=== PATIENT | male | born 1950 | race Caucasian/White ===

== ENCOUNTER 2021-05-28 10:53 | Outpatient (REF) | payer MEDICARE, SELFPAY ==
--- NOTE | ~2021-05-28 | US_ITS ---
EXAMINATION: US RETROPERITONEAL LIMITED (RENAL ONLY) CLINICAL INFORMATION: Malignant neoplasm of unspecified kidney, except renal pelvis. COMPARISON: Renal ultrasound 01/05/2019 and 10/06/2017. CT abdomen and pelvis 10/29/2017. TECHNIQUE: Real-time imaging of the kidneys. FINDINGS: RIGHT KIDNEY: 10.0 x 5.8 x 5.3 cm (SAG x AP x TRV). The kidney is normal in size, contour, and echogenicity. Renal cortical thickness is normal. There is curvilinear increased echogenicity with posterior acoustic shadowing seen in the lower pole of the right kidney at the cryoablation site. This is difficult to evaluate due to acoustic shadowing. Best measurement is 3.1 x 2.9 x 2.9 cm. Further evaluation with CT or MRI should be considered. This does not appear changed from most recent ultrasound January 2019. There are 2 cysts upper pole measuring 1.0 x 1.1 x 0.8 cm in the midpole measuring 5 mm. There is question of an echogenic lesion in the upper pole measuring 1.2 cm versus partial volume averaging with perinephric fat. No renal calculi or hydronephrosis. LEFT KIDNEY: 12.0 x 5.9 x 4.9 cm (SAG x AP x TRV). The kidney is normal in size, contour, and echogenicity. Renal cortical thickness is normal. There is a 2.6 x 1.9 x 1.7 cm minimally complex cyst with single thin septation exophytic to the midpole. There is an 8 mm cyst in the upper pole. No renal calculi or hydronephrosis. US/US renal BI IMPRESSION: Linear echogenicity with posterior acoustic shadowing seen in the area of previous right renal cryoablation. This is similar to most recent ultrasound January 2019. Due to acoustic shadowing from likely calcification the lesion is difficult to characterize and further evaluation with CT or MRI with and without contrast is recommended. Bilateral renal cysts. 1 cm echogenic area in the upper pole of the right kidney questionable for angiomyolipoma versus partial volume averaging with the perinephric fat. This could be further evaluated at the time of CT or MRI.
== END 2021-05-28 10:54 | disposition home or self-care (01) ==
LOC: HO.US 10:53
PROVIDERS: PCP Internal Medicine; Visit Provider Urology
DX: C64.9 Malignant neoplasm of unspecified kidney, except renal pelvis (principal)
CPT/HCPCS: 76775

== ENCOUNTER → 2021-06-15 09:58 | Outpatient (BNVA) | payer MEDICARE, SELFPAY | PROVIDERS: PCP Internal Medicine; Visit Provider Urology | DX: N40.1 Benign prostatic hyperplasia with lower urinary tract symptoms (principal); N13.8 Other obstructive and reflux uropathy; Z85.528 Personal history of other malignant neoplasm of kidney; Z15.09 Genetic susceptibility to other malignant neoplasm | CPT/HCPCS: 99212 ==

== ENCOUNTER 2022-05-29 10:12 | Outpatient (REF) | payer MEDICARE, SELFPAY ==
[2022-05-29 11:48] LABS: Prostate Specific Antigen 3.25 ng/mL (<0.05-4.0)
== END 2022-05-29 10:13 | disposition home or self-care (01) ==
LOC: HO.LAB 10:12
PROVIDERS: PCP Internal Medicine; Visit Provider Urology
DX: Z12.5 Encounter for screening for malignant neoplasm of prostate (principal); N40.1 Benign prostatic hyperplasia with lower urinary tract symptoms; N13.8 Other obstructive and reflux uropathy
CPT/HCPCS: 36415; 84153

== ENCOUNTER 2022-06-03 07:52 | Outpatient (REF) | payer MEDICARE, SELFPAY ==
--- NOTE | ~2022-06-03 | US_ITS ---
EXAMINATION: US RETROPERITONEAL LIMITED (RENAL ONLY) CLINICAL INFORMATION: Calculus of kidney. COMPARISON: Ultrasound retroperitoneal limited (renal only) 05/28/2021 and 01/05/2019. CT abdomen and pelvis without and with contrast 10/29/2017. TECHNIQUE: Real-time imaging of the kidneys. FINDINGS: RIGHT KIDNEY: 10.1 x 5.1 x 5.3 cm (SAG x AP x TRV). The kidney is normal in size, contour, and echogenicity. Renal cortical thickness is normal. There is a curvilinear echogenic focus with posterior acoustic shadowing in the posterior lower pole right kidney. This area measures 3.5 x 3.0 x 2.6 cm in dimension. Appearance is similar to previous ultrasound. Due to acoustic shadowing, this is not well evaluated by ultrasound. There is a 1 cm peripelvic cysts in the upper pole. There is a 1.2 x 1.1 x 1.4 cm hyperechoic area in the upper pole of the right kidney. This is similar to previous exam. No renal calculi or hydronephrosis. LEFT KIDNEY: 12.2 x 5.7 x 5.5 cm (SAG x AP x TRV). The kidney is normal in size, contour, and echogenicity. Renal cortical thickness is normal. There are 3 cysts measuring 1 cm in the upper pole, 2 cm in the midpole and 8 mm in the lower pole. No renal calculi or hydronephrosis. US/US renal BI IMPRESSION: Curvilinear echogenicity with posterior acoustic shadowing in the posterior lower pole right kidney and region of previous cryoablation. This is similar to recent ultrasounds. Due to acoustic shadowing from calcification seen on CT, this area is not well evaluated by ultrasound and again followup imaging with CT or MRI is recommended. 1.2 cm echogenic area in the upper pole of the right kidney similar to previous ultrasound which again could be further evaluated at the time of CT or MRI. Bilateral renal cysts.
== END 2022-06-03 07:53 | disposition home or self-care (01) ==
LOC: HO.US 07:52
PROVIDERS: PCP Internal Medicine; Visit Provider Urology
DX: N20.0 Calculus of kidney (principal); C64.9 Malignant neoplasm of unspecified kidney, except renal pelvis
CPT/HCPCS: 76775

== ENCOUNTER → 2022-06-14 10:45 | Outpatient (BNVA) | payer MEDICARE, SELFPAY | PROVIDERS: PCP Internal Medicine; Visit Provider Urology | DX: C64.9 Malignant neoplasm of unspecified kidney, except renal pelvis (principal); N40.1 Benign prostatic hyperplasia with lower urinary tract symptoms; N13.8 Other obstructive and reflux uropathy | CPT/HCPCS: 99212 ==

== ENCOUNTER → 2022-08-21 13:57 | Outpatient (BNVA) | payer MEDICARE, SELFPAY | PROVIDERS: PCP Internal Medicine; Visit Provider Urology | DX: N40.1 Benign prostatic hyperplasia with lower urinary tract symptoms (principal); N13.8 Other obstructive and reflux uropathy; C64.9 Malignant neoplasm of unspecified kidney, except renal pelvis | CPT/HCPCS: 51798; 99212 ==

== ENCOUNTER 2023-06-11 07:51 | Outpatient (REF) | payer MEDICARE, SELFPAY ==
--- NOTE | ~2023-06-11 | US_ITS ---
EXAMINATION: US RETROPERITONEAL LIMITED (RENAL ONLY) CLINICAL INFORMATION: Malignant neoplasm of unspecified kidney, except renal pelvis. COMPARISON: Renal ultrasound 06/03/2022 and 05/28/2021. CT abdomen and pelvis 10/29/2017. TECHNIQUE: Real-time imaging of the kidneys. FINDINGS: RIGHT KIDNEY: 8.6 x 5.5 x 6.0 cm (SAG x AP x TRV). The kidney is normal in size, contour, and echogenicity. Renal cortical thickness is normal. There is a curvilinear echogenic focus with posterior acoustic shadowing in the posterior lower pole. This measures 3.5 x 3.2 x 2.5 cm and does not appear appreciably changed. Due to acoustic shadowing, this is again not well evaluated by ultrasound. There is a 1.6 x 0.9 x 1.3 cm echogenic lesion in the upper pole questionable for an angiomyolipoma versus partial volume averaging with the perinephric fat. There are small cysts measuring less than 1 cm in the upper and midpole. No renal calculi or hydronephrosis. LEFT KIDNEY: 11.8 x 5.2 x 6.7 cm (SAG x AP x TRV). The kidney is normal in size, contour, and echogenicity. There are 3 cysts largest measuring 2 cm in the midpole. Renal cortical thickness is normal. No renal calculi or hydronephrosis. US/US renal BI IMPRESSION: Curvilinear echogenicity with posterior acoustic shadowing in the posterior lower pole right kidney post cryoablation. This is similar to recent ultrasounds. Due to acoustic shadowing from calcification seen on CT, this area is not well evaluated by ultrasound and again followup imaging with CT or MRI is recommended. 1.2 cm echogenic area in the upper pole of the right kidney questionable for an angiomyolipoma versus partial volume averaging with the perinephric fat similar to previous ultrasound which again could be further evaluated at the time of CT or MRI.
== END 2023-06-11 07:52 | disposition home or self-care (01) ==
LOC: HO.US 07:51
PROVIDERS: PCP Internal Medicine; Visit Provider Urology
DX: C64.9 Malignant neoplasm of unspecified kidney, except renal pelvis (principal)
CPT/HCPCS: 76775

== ENCOUNTER 2023-06-24 11:17 | Outpatient (AMB) | payer MEDICARE, SELFPAY ==
--- NOTE | 2023-06-24 11:24 | MHC.OFFVIS ---
Intake Visit Reasons: 10m/US(set) Intake Note: Patient is Present for Follow Up Urology Medication: Patient is not taking tamsulosin no more Antibiotic Allergies: None Blood Thinners:None Allergies No Known Allergies Allergy (Verified 06/24/23 11:28) HPI Comments Details: Niru is a pleasant male. He is a patient of Dr. Hardy. 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 Soft tissue nodule calcification. No evidence of IV enhancement - 05/22 renal ultrasound right kidney changes stable, small bilateral cysts less than 8 mm - 05/23 renal ultrasound right kidney stable - 05/24 renal ultrasound stable cyst and scarring Lower urinary tract symptoms Longstanding symptoms Current management tamsulosin PSA 2019 1.4, 05/23 3.3 PFSH Medical History Carcinoma of kidney Review of Systems Const Denies chills and Denies fever(s) Card Reports no additional complaints and Denies syncope Resp Denies cough GI Denies abdominal pain and Denies heartburn Reports as per HPI and Denies change in libido Neuro Denies syncope Psych Denies change in libido Endo Denies change in libido Physical Exam Const General: cooperative, healthy appearing, comfortable and no acute distress Orientation/consciousness: patient oriented x3 HEENT Face and sinus: Yes normal facial exam Mouth: moist mucous membranes Neck Neck: Yes normal visual inspection, Yes full ROM and Yes trachea midline Chest Chest palpation & inspection: normal inspection of the chest Resp Effort & Inspection: normal respiratory effort, able to speak in complete sentences and no respiratory distress GI Inspection: Yes normal to inspection Back/Spine/Pelvis Cervical Spine: normal cervical lordosis Thoracic/Lumbar Spine: thoracic and lumbar spine normal to inspection Skin General skin exam: no rashes or lesions noted Neuro General: patient oriented x3, gait normal, tone normal and moves all extremities Extrem General: Yes normal to inspection and Yes capillary refill normal Assessment & Plan Assessment & Plan (1) BPH w urinary obs/LUTS: Code(s): N40.1 - Benign prostatic hyperplasia with lower urinary tract symptoms; N13.8 - Other obstructive and reflux uropathy Category: Medical (2) Carcinoma of kidney: Code(s): C64.9 - Malignant neoplasm of unspecified kidney, except renal pelvis Category: Medical (3) Gonzales syndrome: Code(s): Z15.09 - Genetic susceptibility to other malignant neoplasm Category: Medical Plan Twelve month follow-up PSA and renal Orders: Orders Prostate Specific Antigen 364 Days C64.9 - Malignant neoplasm of unspecified kidney, except renal pelvis US renal BI 12 Months C64.9 - Malignant neoplasm of unspecified kidney, except renal pelvis Patient Instructions: Imaging studies, laboratory and physical exam results were discussed and reviewed in detail. No major barriers to patient understanding were identified. An opportunity to ask questions regarding the treatment plan was provided. All questions were answered. The patient expressed understanding and agreement with the above treatment plan. The patient is aware they should contact our office by phone for worsening of their current condition or the appearance of new urologic symptoms. Compliance is encouraged with any medications and followup testing that is ordered. It is a privilege to participate in the urologic care of your patient. If you have any questions or concerns regarding treatment for the above conditions, or other urologic issues, please do not hesitate to contact me. The office telephone contact is [phone]. This note is constructed using voice recognition software. While every effort has been made to ensure accuracy site medical director errors may have been included. Yours sincerely, Dr Shreyas Avina MD, [facility] - Urology Providers of Expert, Compassionate Care for the Genitourinary System Coding Level of Care Code Est Pt Level 4 (43470) Diagnoses BPH w urinary obs/LUTS N40.1; N13.8 Carcinoma of kidney C64.9 Gonzales syndrome Z15.09
== END 2023-06-24 11:54 | disposition home or self-care (01) ==
PROVIDERS: PCP Internal Medicine; Visit Provider Urology
DX: N40.1 Benign prostatic hyperplasia with lower urinary tract symptoms (principal); N13.8 Other obstructive and reflux uropathy; C64.9 Malignant neoplasm of unspecified kidney, except renal pelvis; Z15.09 Genetic susceptibility to other malignant neoplasm
CPT/HCPCS: 99213

== ENCOUNTER → 2023-06-24 11:17 | Outpatient (BNVA) | payer MEDICARE, SELFPAY | PROVIDERS: PCP Internal Medicine; Visit Provider Urology | DX: N40.1 Benign prostatic hyperplasia with lower urinary tract symptoms (principal); N13.8 Other obstructive and reflux uropathy; C64.1 Malignant neoplasm of right kidney, except renal pelvis; Z15.09 Genetic susceptibility to other malignant neoplasm | CPT/HCPCS: 99212 ==

== ENCOUNTER 2024-06-10 13:18 | Outpatient (REF) | payer MEDICARE, SELFPAY ==
--- NOTE | ~2024-06-10 | US_ITS ---
EXAMINATION: US KIDNEY BILATERAL HISTORY: C64.9 - Malignant neoplasm of unspecified kidney, except renal pelvis TECHNIQUE: Real-time grayscale ultrasound imaging of the kidneys was performed and images were reviewed. COMPARISON: Comparison is made with the prior examination dated 06/11/2023. FINDINGS: Right kidney: The right kidney measures 8.9 x 5.5 x 5.2 cm. Renal parenchymal echotexture and thickness are normal. There is a 1.8 x 1.1 x 1.7 cm echogenic lesion at the upper pole (previously 1.6 x 0.9 x 1.3 cm). Again seen is a curvilinear echogenic focus with acoustic shadowing measuring approximately 3.4 cm in size at the lower pole. There are 2 cysts noted measuring up to 10 mm in size. There is no hydronephrosis or renal calculi. Left Kidney: The left kidney measures 11.7 x 5.6 x 5.3 cm. Renal parenchymal echotexture and thickness are normal. Multiple cysts are noted, the largest of which is in the interpolar region measuring 2.4 x 2.0 x 1.9 cm. There is no hydronephrosis or renal calculi. US/US renal BI IMPRESSION: 1. Stable curvilinear echogenic focus with acoustic shadowing at the lower pole of the right kidney. By report, the patient is status post cryoablation in this region. Evaluation is markedly limited due to shadowing. This could be better evaluated with CT or MRI. 2. Slight interval increase in size of an echogenic lesion at the upper pole measuring 1.8 x 1.1 x 1.7 cm. 3. Bilateral renal cysts as described. Electronically signed by: Andres Dubose MD 06/10/2024 02:58 PM EDT
--- OUTSIDE RECORDS SUMMARY | 2024-06-10 16:03 | XMS_ITS | Data Portability ---
Author Organization [facility] Service Address [address] [place] [address] Assessment Encounter Date Assessment Date Assessment LastModified by Organization Details LastModified Time 07/11/2023 07/11/2023 [id number] [place] [id number] (TAX COLLECTION COORDINATOR) MDM MODERATE MUST MEET 2 OUT OF 3 ELEMENTS: PROBLEMS, DATA OR RISK ELEMENT 1: PROBLEMS ADDRESSED 1 OR MORE CHRONIC ILLNESS WITH EXACERBATION OR 2 OR MORE STABLE CHRONIC ILLNESSES OR 1 UNDIAGNOSED NEW PROBLEM OR 1 ACUTE ILLNESS W/SYMPTOMS OR 1 ACUTE COMPLICATED INJURY ELEMENT 2: DATA MUST MEET 1 OF 3 CATEGORIES CATEGORY 1: REVIEW OF PRIOR EXTERNAL NOTES, REVIEW OF RESULTS, ORDERING OF EACH TEST, ASSESSMENT REQUIRING INDEPENDENT HISTORIAN OR CATEGORY 2: INDEPENDENT INTERPRETATION OF TESTS BY ANOTHER PHYSICIAN OR SPECIALIST OR CATEGORY 3: DISCUSSION OF MGT OR TEST INTERPRETATION W/EXTERNAL PHYSICIAN OR SPECIALIST ELEMENT 3: RISK RISK OF COMPLICATIONS AND/OR MORBIDITY OR MORTALITY OF PATIENT MANAGEMENT PROVIDER MUST THOROUGHLY DOCUMENT EACH ELEMENT THAT IS COVERED Not available 07/11/2023 09:19:42 11/24/2023 11/24/2023 [id number] [place] [id number] (TAX COLLECTION COORDINATOR) MDM HIGH MUST MEET 2 OUT OF 3 ELEMENTS: PROBLEMS, DATA OR RISK ELEMENT 1: PROBLEMS 1 OR MORE CHRONIC ILLNESS W/SEVERE EXACERBATION, PROGRESSION MAY REQUIRE HOSPITAL LEVEL CARE OR 1 ACUTE OR CHRONIC ILLNESS OR INJURY THAT POSES A THREAT TO LIFE OR BODILY FUNCTION ELEMENT 2: DATA: MUST MEET 2 OF 3 CATEGORIES CATEGORY 1 REVIEW OF PRIOR EXTERNAL NOTES REVIEW OF THE RESULTS ORDERING OF EACH TEST ASSESSMENT REQUIRING INDEPENDENT HISTORIAN(S) CATEGORY 2: INDEPENDENT INTERPRETATION OF TESTS BY ANOTHER PROVIDER/SPECIALI ST CATEGORY 3: DISCUSSION OF MGT OR TEST INTERPRETATION W/EXTERNAL PHYSICIAN/SPECIAL IST ELEMENT 3: RISK HIGH RISK OF MORBIDITY FROM ADDITIONAL DIAGNOSTIC TESTING OR TREATMENT PROVIDER MUST THOROUGHLY DOCUMENT EACH ELEMENT THAT IS COVERED Not available 11/24/2023 10:12:08 01/19/2024 01/19/2024 [id number] [place] [id number] (TAX COLLECTION COORDINATOR) MDM MODERATE MUST MEET 2 OUT OF 3 ELEMENTS: PROBLEMS, DATA OR RISK ELEMENT 1: PROBLEMS ADDRESSED 1 OR MORE CHRONIC ILLNESS WITH EXACERBATION OR 2 OR MORE STABLE CHRONIC ILLNESSES OR 1 UNDIAGNOSED NEW PROBLEM OR 1 ACUTE ILLNESS W/SYMPTOMS OR 1 ACUTE COMPLICATED INJURY ELEMENT 2: DATA MUST MEET 1 OF 3 CATEGORIES CATEGORY 1: REVIEW OF PRIOR EXTERNAL NOTES, REVIEW OF RESULTS, ORDERING OF EACH TEST, ASSESSMENT REQUIRING INDEPENDENT HISTORIAN OR CATEGORY 2: INDEPENDENT INTERPRETATION OF TESTS BY ANOTHER PHYSICIAN OR SPECIALIST OR CATEGORY 3: DISCUSSION OF MGT OR TEST INTERPRETATION W/EXTERNAL PHYSICIAN OR SPECIALIST ELEMENT 3: RISK RISK OF COMPLICATIONS AND/OR MORBIDITY OR MORTALITY OF PATIENT MANAGEMENT PROVIDER MUST THOROUGHLY DOCUMENT EACH ELEMENT THAT IS COVERED Not available 01/19/2024 15:51:21 02/17/2024 02/17/2024 [id number] [place] [id number] (TAX COLLECTION COORDINATOR) MDM MODERATE MUST MEET 2 OUT OF 3 ELEMENTS: PROBLEMS, DATA OR RISK ELEMENT 1: PROBLEMS ADDRESSED 1 OR MORE CHRONIC ILLNESS WITH EXACERBATION OR 2 OR MORE STABLE CHRONIC ILLNESSES OR 1 UNDIAGNOSED NEW PROBLEM OR 1 ACUTE ILLNESS W/SYMPTOMS OR 1 ACUTE COMPLICATED INJURY ELEMENT 2: DATA MUST MEET 1 OF 3 CATEGORIES CATEGORY 1: REVIEW OF PRIOR EXTERNAL NOTES, REVIEW OF RESULTS, ORDERING OF EACH TEST, ASSESSMENT REQUIRING INDEPENDENT HISTORIAN OR CATEGORY 2: INDEPENDENT INTERPRETATION OF TESTS BY ANOTHER PHYSICIAN OR SPECIALIST OR CATEGORY 3: DISCUSSION OF MGT OR TEST INTERPRETATION W/EXTERNAL PHYSICIAN OR SPECIALIST ELEMENT 3: RISK RISK OF COMPLICATIONS AND/OR MORBIDITY OR MORTALITY OF PATIENT MANAGEMENT PROVIDER MUST THOROUGHLY DOCUMENT EACH ELEMENT THAT IS COVERED Not available 02/17/2024 16:08:57 04/28/2024 04/28/2024 [id number] [place] [id number] (TAX COLLECTION COORDINATOR) : MDM LOW MUST MEET 2 OF 3 ELEMENTS: PROBLEMS, DATA OR RISK ELEMENT 1: PROBLEMS ADDRESSED (LOW): 2 OR MORE SELF-LIMITED OR MINOR PROBLEMS OR 1 STABLE CHRONIC ILLNESS OR 1 ACUTE UNCOMPLICATED ILLNESS OR INJURY ELEMENT 2: DATA TO BE REVISED AND ANALYZED (LOW) MUST MEET 1 OF 2 CATEGORIES: CATEGORY 1. REVIEW OF PRIOR EXTERNAL NOTES/RESULTS, ORDERING OF TEST(S) CATEGORY 2. ASSESSMENT REQUIRING INDEPENDENT HISTORIAN(S) INCLUDE WHO THE HISTORIAN IS AND RELATION TO PT AND WHY PT IS UNABLE TO GIVE COMPLETE HISTORY ELEMENT 3: RISK (LOW) RISK OF COMPLICATIONS AND/OR MORBIDITY OR MORTALITY OF PATIENT MANAGEMENT PROVIDER MUST THOROUGHLY DOCUMENT ALL OF THE ELEMENTS COVERED Not available 04/28/2024 09:50:56 Plan of Treatment Reminders Order Date Submit Date Provider Last Modified By Organization Details Last Modified Time Details Appointments None recorded. Lab HbA1c (hemoglobin A1c), blood 2023 024 [facility] (Outpatient), [address] [place] [address], [address], 5 14:26:49 HbA1c (hemoglobin A1c), blood 2024 025 [facility] (Outpatient), [address] [place], [address], 5 14:26:49 Referral None recorded. Procedures None recorded. Surgeries None recorded. Imaging None recorded. Medication Orders omeprazole 20 mg capsule,del ayed release 2024 025 [facility] #0447, [address] [place] [address], [address], 5 09:49:45 prednisone 1 mg tablet 2023 024 [facility] #044[facility], [address] [place], [address], 4 16:10:14 prednisone 5 mg tablet 2023 024 [facility], [address] [place] [address], [address], 4 16:10:14 prednisone 5 mg tablet 2023 024 [facility]044[facility], [address] [place], [address], 4 15:51:07 prednisone 1 mg tablet 2023 024 [facility]044[facility], [address] [place] [address], [address], 4 15:51:06 metformin 1,000 mg tablet 2023 024 [facility]044[facility], [address] [place], [address], 4 10:24:22 doxycycline hyclate 100 mg tablet 2023 024 [facility]044[facility], [address] [place], [address], 15:28:50 Silvadene 1 % topical cream 2023 024 [facility]044[facility], [address] [place], [address], 10:24:21 omeprazole 20 mg capsule,del ayed release 2023 024 [facility]044[facility], [address] [place], [address], 09:27:57 Patient TargetsNo targets recorded. Patient Instructions Encounter Date Encounter Id Patient Instructions Last Modified By Organization Details Last Modified Time 07/11/2023 [id number] polymyalgia rheumatica: care instructions Not available 07/11/2023 09:27:55 gastroesophageal reflux disease (GERD): care instructions Not available 07/11/2023 09:27:55 11/24/2023 [id number] pulse oximetry* Not available 11/24/2023 10:24:23 01/19/2024 [id number] polymyalgia rheumatica: care instructions Not available 01/19/2024 15:51:05 02/17/2024 [id number] high blood press ure: care instructions Not available 02/17/2024 16:09:16 learning about h igh blood pressure Not available 02/17/2024 16:09:16 04/28/2024 [id number] polymyalgia rheumatica: care instructions Not available 04/28/2024 09:49:42 learning about t ype 2 diabetes Not available 04/28/2024 09:49:42 type 2 diabetes: care instructions Not available 04/28/2024 09:49:42 gastroesophageal reflux disease (GERD): care instructions Not available 04/28/2024 09:49:42 Reason for Referral None Reported. Results Created Date Observation Date Name Description Value Unit Range Abnormal Flag Note LastModifiedBy Organization Detail LastModifiedTime 11/24/19 24 11/24/2023 pulse oxime try* Result 98% Not Available [facility] [address] [facility] [address], [place], [address], 11/24/2023 08:03:15 04/23/19 25 04/23/2024 HbA1c (hemo globi n A1c), blood A1C 7.5 abnormal Not Available [facility] (Outpatient) [address] [place], [address], 04/23/2024 14:22:48 06/16/19 24 06/11/2023 US, duple x, retro perit oneum , limit ed No observ ation record ed. [email or web address] [facility] (Medical Records) [address] [place], [address], 06/17/2023 09:47:23 06/11/19 25 06/10/2024 imagi ng/di agnos tic resul t No observ ation record ed. [facility] (Medical Records) [address] [place], [address], 06/10/2024 15:01:42 Result Notes None recorded. 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 Alizaradha Gonzales [facility] 4 08:25:57 Cerebral hemorrha ge 668866780 Active 2017 Alizaradha Gonzales [facility] 4 08:26:04 Gastroes ophageal reflux disease 468233011 Active 2017 Aliza Gonzales [facility] 4 08:25:57 Hypercho lesterol emia 03834033 Active 2017 Alizaradha Gonzales [facility] 4 08:25:57 [facility] hyperten enedina 07792348 Active 2017 Alizaradha Gonzales [facility] 4 08:25:57 Osteoart hritis of knee 471193793 Active 2017 Alizaradha Gonzales [facility] 4 08:25:57 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 4 10:11:54 Family history of diabetes mellitus type 2 506233597 Completed 201702/13/2018 Miky Hardy DO [address] [place], [address], [facility] 8 11:20:39 Insomnia 123977709 Active 2017 Alizaradha ahn [facility] 4 08:25:57 Renal cell carcinom a 002282976 Active 2017 R Aliza ahn [facility] 4 08:25:57 Polymyal mulu rheumati ca 22407456 Active 2017 Alizaradha ahn [facility] 4 08:25:57 Type 2 diabetes mellitus 84778760 Completed 201710/29/2019 Removal Reason: now in pre diabetic state Alizaradha ahn [facility] 4 08:25:57 Adult bronchie ctasis 04593061 Active 2023 Alizaradha ahn [facility] 4 08:26:04 Cellulit is of lower leg 578008177 Active 2023 Alizaradha Gonzales jimy [facility] 4 08:26:04 Notes:Some problems listed i n Document: #[id number] could not be added to this patient's chart. Please review this document and add these problems to the patient's chart manually as needed. Problem Notes None recorded. Procedures Surgical History Date Name Laterality Status Provider Name and Address Organization Details Recorded Time 05/07/19 25 Colonoscopy completed Miky Hardy DO [address] [place] [address], [address], [facility] 05/06/2024 18:37:55 09/06/19 20 Colonoscopy completed Miky Hardy DO [address] [place] [address], [address], [facility] 09/10/2019 14:05:05 03/19/19 19 Colonoscopy completed Cony Dockery [facility] 03/20/2018 08:26:29 Imaging Results Imaging Date Name Status LastModified by Organiz ation Details LastModified Time 06/11/2023 US, duplex, retroperiton eum, limited completed [email or web address] [facility] (Medical Records) [address] [place], [address], 06/17/2023 09:47:23 06/10/2024 imaging/diag nostic result active ELICIA [facility] (Medical Records) [address] [place], [address], 06/10/2024 15:01:42 Procedure Notes None recorded. Medical Equipment None Reported. Allergies No known drug allergies Medications Name Sig Start Date Stop Date Status Note LastModified by Organization Details LastModified Time silver sulfadiazin e 1 % topical cream APPLY A 1/16 INCH (1.5 MM) THICK LAYER TO ENTIRE BURN AREA BY TOPICAL ROUTE 2 TIMES PER DAY active Not Available Not Available No t Available metformin 500 mg tablet TAKE 1 TABLET BY MOUTH TWICE A DAY 04/20 completed Not Available Not Available Not Available prednisone 10 mg tablet TAKE 2 TABLETS BY MOUTH EVERY DAY 11/23 completed Not Available Not Available Not Available FreeStyle Lancets 28 gauge USE TO CHECK BLOOD SUGAR LEVEL DAILY. active Not Available Not Available No t Available clonazepam 0.5 mg tablet Take by oral route for 10 days. 09/22 completed Not Available Not Available Not Available prednisone 5 mg tablet TAKE 1 TABLET BY MOUTH EVERY DAY active Not Available Not Available No t Available simvastatin 40 mg tablet 03/11 completed Not Available Not Available Not Available carvedilol 3.125 mg tablet TAKE 1 TABLET TWICE A DAY 07/06 completed Not Available Not Available Not Available lidocaine-p rilocaine 2.5 %-2.5 % topical cream 11/17 completed Not Available Not Available Not Available alprazolam 0.5 mg tablet 11/17 completed Not Available Not Available Not Available tamsulosin 0.4 mg capsule TAKE 1 CAPSULE BY MOUTH AT BEDTIME 07/10 completed Not Available Not Available Not Available prednisone 1 mg tablet TAKE 4 TABLETS EVERY DAY BY ORAL ROUTE FOR 30 DAYS. active Not Available Not Available No t Available prednisone 2.5 mg tablet TAKE 2 TABLETS BY MOUTH EVERY DAY 07/10 completed Not Available Not Available Not Available metformin 1,000 mg tablet TAKE 1 TABLET BY MOUTH TWICE A DAY active Not Available Not Available No t Available diclofenac potassium 50 mg tablet 09/22 completed Not Available Not Available Not Available omeprazole 20 mg capsule,del ayed release TAKE 1 CAPSULE BY MOUTH EVERY DAY active Not Available Not Available No t Available bisacodyl 5 mg tablet,melchor yed release TAKE 4 TABLET BY MOUTH WITH 8 OZ OF WATER ONCE THE DAY BEFORE THE PROCEDURE FOR 1 DAY 11/30 completed Not Available Not Available Not Available lisinopril 5 mg tablet 08/02 completed Not Available Not Available Not Available furosemide 20 mg tablet TAKE 1 TABLET DAILY 11/17 completed Not Available Not Available Not Available metoprolol succinate ER 25 mg tablet,exte nded release 24 hr TAKE 1 TABLET BY MOUTH EVERY DAY active Not Available Not Available No t Available levofloxaci n 500 mg tablet Take 1 tablet every 24 hours by oral route. 01/14 completed Not Available Not Available Not Available doxycycline hyclate 100 mg tablet TAKE 1 TABLET BY MOUTH TWICE A DAY FOR 10 DAYS 02/16 completed Not Available Not Available Not Available rosuvastati n 5 mg tablet TAKE 1 TABLET BY MOUTH EVERY DAY active Not Available Not Available No t Available multivitami n 07/06 completed Not Available Not Available Not Available peg 3350-electr olytes 236 gram-22.74 gram-6.74 gram-5.86 gram solution USE DIRECTED FOR 1 DAY 07/10 completed Not Available Not Available Not Available FreeStyle Lite Strips USE TO TEST BLOOD SUGAR LEVEL DAILY. 2024 active Not Available Not Available Not Avai lable FreeStyle Enid Lite kit USE TO TEST BLOOD SUGAR LEVEL DAILY. active Not Available Not Available No t Available OneTouch Delica Lancets 33 gauge Take 1 each every day by miscell. route for 30 days. 12/31 completed Not Available Not Available Not Available prednisone 2 mg tablet,melchor yed release Take 2 tablets every day by oral route. active Not Available Not Available No t Available Eliquis 5 mg tablet Take 1 tablet twice a day by oral route for 90 days. 07/06 completed Not Available Not Available Not Available Eliquis 2.5 mg tablet Take 1 tablet twice a day by oral route. 07/22 completed Not Available Not Available Not Available Shingrix (PF) 50 mcg/0.5 mL intramuscul ar suspension, kit 05/12 completed Not Available Not Available Not Available OneTouch Ultra Blue Test Strip TEST ONCE A DAY (E11.9) 03/11 completed Not Available Not Available Not Available Fluzone High-Dose 2019- (PF) 180 mcg/0.5 mL intramuscul ar syringe 10/28 completed Not Available Not Available Not Available Fluzone High-Dose Quad 2019- (PF) 240 mcg/0.7 mL IM syringe 05/12 completed Not Available Not Available Not Available Paxlovid 300 mg (150 mg x 2)-100 mg tablets in a dose pack Take 2 tablets twice a day by oral route for 5 days. 05/28 completed Not Available Not Available Not Available Paxlovid 150 mg-100 mg tablets in a dose pack (Renal Dose) TAKE 2 TABLETS TWICE A DAY BY ORAL ROUTE FOR 5 DAYS. 05/28 completed Not Available Not Available Not Available Vitals Date Recorded Body height Body mass index (BMI) Body weight Heart rate Respiratory rate Oxygen saturation Oxygen saturation in Arterial blood by Pulse oximetry Body temperature Systolic blood pressure Diastolic blood pressure Provider Name and Address Organization Details Last Updated DateTime 4 177.8 cm 26.4 kg/m2 39131.9 2 g 66 /min 16 /min 96 % 96 % 98.1 [degF] 144 mm[Hg] 78 mm[Hg] Osbaldo Arrieta MA [facility] 4 09:03:35 Date Recorded Body height Body mass index (BMI) Body weight Heart rate Oxygen saturation Oxygen saturation in Arterial blood by Pulse oximetry Systolic blood pressure Diastolic blood pressure Provider Name and Address Organization Details Last Updated DateTime 4 177.8 cm 26.3 kg/m2 61746.1 2 g 68 /min 98 % 98 % 130 mm[Hg] 80 mm[Hg] Aliza Gonzales [facility] 4 09:59:02 Date Recorded Body height Body mass index (BMI) Body weight Heart rate Oxygen saturation Oxygen saturation in Arterial blood by Pulse oximetry Systolic blood pressure Diastolic blood pressure Provider Name and Address Organization Details Last Updated DateTime 4 177.8 cm 26.3 kg/m2 50366.4 g 67 /min 98 % 98 % 130 mm[Hg] 80 mm[Hg] Batsheva Ferraromond [facility] 4 15:29:32 Date Recorded Body height Body mass index (BMI) Body weight Heart rate Oxygen saturation Oxygen saturation in Arterial blood by Pulse oximetry Systolic blood pressure Diastolic blood pressure Provider Name and Address Organization Details Last Updated DateTime 4 177.8 cm 26.4 kg/m2 17385 g 70 /min 98 % 98 % 130 mm[Hg] 80 mm[Hg] Aliza Gonzales [facility] 4 15:35:24 Social History Question Answer Notes LastModified by Organizat ion Details LastModified Time Tobacco Smoking Status Former Smoker Not Available [facility] 01/04/2020 03:36:24 What Was The Date Of Your Most Recent Tobacco Screening? 02/17/2024 [email or web address] Information not available 02/17/2024 Do You Or Have You Ever Used Any Other Forms Of Tobacco Or Nicotine? No [email or web address] Information not available 03/11/2022 Sex: Unknown Functional Status None recorded. Mental Status None recorded. Family History Nothing Reported. Medical History No medical history recorded. Immunizations Vaccine Type Date Status Note Provider Nam e and Address Organization Details Recorded Time Influenza, split virus, quadrivalent, preservative 8 completed Not Available [facility] 11/29/2020 15:08:23 Tdap 4 completed Miky Hardy DO [address] [place] [address], [address], [facility] 12/07/2023 19:15:54 influenza, unspecified formulation 4 completed Miky Hardy DO [address] [place] [address], [address], [facility] 12/07/2023 19:16:16 Respiratory syncytial virus (RSV) vaccine, unspecified 4 completed Miky Hardy DO [address] [place] [address], [address], [facility] 12/07/2023 19:17:08 Influenza, split virus, quadrivalent, preservative 9 completed Not Available [facility] 11/29/2020 15:08:23 zoster, unspecified formulation 0 completed Not Available [facility] 11/29/2020 15:08:23 Influenza, split virus, quadrivalent, preservative 0 completed Not Available [facility] 11/29/2020 15:08:23 zoster recombinant 1 completed Not Available [facility] 11/29/2020 15:08:23 Past Encounters Encounter ID Performer Location Encounter Start Date Encounter Closed Date Diagnosis/Indication Diagnosis SNOMED-CT Code Diagnosis ICD10 Code Diagnosis Note [id number] Miky Hardy [facility] [address] [facility], [place] [address] 09/22/2017 11:57:01 09/22/2017 13:56:09 Type 2 diabetes mellitus 79066712 E11.9 stable doing opk a1c is sl elevated but still ok Essential hypertension 17770047 I10 stable taking meds with no issues Gastroesop hageal reflux disease 807009597 K21.9 quiet on prilosec 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 9 [id number] Miky Hardy [facility] [address] [facility], [facility] [address] 01/14/2018 11:37:57 01/14/2018 16:34:17 Abdominal aortic aneurysm screening 395488542 Z13.6 Hepatitis C screening 41 0021119 Z11.59 Dai syndrome 111744903 Z15.09 needs referral to gi for setting up a surveillia nce program Type 2 michael betes mellitus 78945611 E11.9 stable doing ok a1c is sl elevated at 6.9 but still ok Atrial fibrillation 4943 6004 I48.91 newly discovered but pt states has had this for years currently is asymptomat ic and in NSR will refer to cardiology and keep him on low dose carvedilol and asa [id number] Miky PriyaShayna Hardy [facility] [address] [facility], [place] [address] 02/13/2018 10:50:45 02/13/2018 11:36:37 Atrial fibrillation 09367482 I48.91 newly discovered but pt states has had this for years currently is asymptomat ic and in NSR keep him on low dose carvedilol and asa will be seeing cardiologi st on the of this month Hepatitis C screening 41 0824010 Z11.59 will order next lab Essential hypertension 47354267 I10 stable taking meds with no issues carvedilol is well tolerated Type 2 michael betes mellitus 41111434 E11.9 stable doing ok a1c is sl elevated at 6.9 but still ok [id number] Miky PowersShayna Hayley [facility] [address] [facility] [place] [address] 04/08/2018 11:55:15 04/08/2018 12:38:54 Atrial fibrillation 83083474 I48.91 newly discovered but pt states has had this for years currently is asymptomat ic and in NSR keep him on low dose carvedilol and asa was seen by cardiologi st on the of this dec but we did not receive any Type 2 michael betes mellitus 07367984 E11.9 a1c is pending but his fbs was 191 Essential hypertension 46351480 I10 stable taking meds with no issues carvedilol is well tolerated Renal diso rder due to type 2 diabetes mellitus 799557209 E11.22 [id number] Miky Hardy [facility] [address] [facility] [place] [address] 07/22/2018 11:40:50 07/22/2018 12:18:10 Atrial fibrillation 96805177 I48.91 newly discovered but pt states has had this for years currently is asymptomat ic and in NSR keep him on low dose carvedilol and asa was seen by cardiologi st on the 31 of this dec but we did not receive any Hypercholesterolemia 136 64855 E78.00 will need to check in the next lab draw Type 2 michael betes mellitus 95078419 E11.9 a1c is 5.5 we will discontinu e the metformin! !!!!! 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 G90.2 dx by optho but i have no info had and MRI but no results on this but pt told was neg dont know of anyu follow up wi just following this Essential hypertension 96168064 I10 stable taking meds with no issues carvedilol is well tolerated Mass of chest wall 23169 4000 R22.2 has large sebaceous cyst on chest wall will need referral [id number] Miky Hardy [facility] [address] [facility],[place] [address] 11/17/2018 15:37:11 11/17/2018 16:04:23 Hypercholesterolemia 93574846 E78.00 will need to check in the next lab draw Atrial fibrillation 4943 6004 I48.91 t pt states has had this for years currently is asymptomat ic and in NSR keep him on low dose carvedilol and asa will see cardiologi st Essential hypertension 78266644 I10 stable taking meds with no issues carvedilol is well tolerated Type 2 michael betes mellitus 96865251 E11.9 a1c is 5.2, was 5.5 with discontinu ed metformin! !!!!! [id number] Miky Hardy [facility] [address] [facility],[place] [address] 03/29/2019 13:19:00 03/29/2019 14:21:03 Type 2 diabetes mellitus 00383106 E11.9 A1C stable at 5.5 with improved diet/exerc ise Dropped 30 lb over last year Essential hypertension 84787601 I10 stable taking meds with no issues carvedilol is well tolerated Atrial fibrillation 4943 6004 I48.91 pt states has had this for years currently is asymptomat ic and in NSR keep him on low dose carvedilol and asa will see cardiologi st Doing very well Hypercholesterolemia 136 39565 E78.00 HDL 44 LDL 132 Doing very well with current med [id number] Miky Hardy [facility] [address],[place] [address] 08/03/2019 13:33:00 08/03/2019 13:56:20 Atrial fibrillation 61648442 I48.91 pt states has had this for years currently is asymptomat ic and in NSR keep him on low dose carvedilol and asa will see cardiologi st Doing very well Essential hypertension 81375150 I10 stable taking meds with no issues carvedilol is well tolerated Type 2 michael betes mellitus 93960016 E11.9 A1C stable at 5.5 with improved diet/exerc ise Dropped 30 lb over last year Gastroesop hageal reflux disease 990914623 K21.9 quiet on prilosec [id number] Miky Hardy [facility] [address] [facility] [address],[place] [address] 10/29/2019 09:03:20 10/29/2019 10:19:43 Atrial fibrillation 50532929 I48.91 pt states has had this for years currently is asymptomat ic and in NSR keep him on low dose carvedilol and asa will see cardiologi st Doing very well Type 2 michael betes mellitus 37601188 E11.9 A1C stable at 5.7 and 5.5 previous with improved diet/exerc ise Dropped 30 lb over last year and continues to drop a bit Essential hypertension 67458006 I10 stable taking meds with no issues carvedilol is well tolerated Hepatitis C screening 41 9998489 Z11.59 will order next lab [id number] MELVIN HIRSCH [facility] [address] [facility] [address],[place] [address] 01/21/2020 15:49:29 01/21/2020 16:23:27 Atrial fibrillation 53040122 I48.91 stable Lipoma of skin 627080840 D17.30 will do US to confirm, as patient has hx of Dai Disease [id number] Miky Haryd [facility] [address],[place] [address] 05/12/2020 09:01:17 05/12/2020 09:39:45 Atrial fibrillation 61724737 I48.91 pt states has had this for years currently is asymptomat ic and in NSR keep him on low dose carvedilol and asa will see cardiologi st Doing very well Impaired f asting glycemia 358158346 R73.01 a1c is 5.5 doing great Essential hypertension 01110271 I10 stable taking meds with no issues carvedilol is well tolerated [id number] Miky Hardy [facility] [address],[place] [address] 10/06/2020 08:49:22 10/06/2020 09:54:34 Atrial fibrillation 19842025 I48.91 pt states has had this for years currently is asymptomat ic and in NSR keep him on low dose carvedilol and asa will see cardiologi st Doing very well Hypercholesterolemia 136 59574 E78.00 HDL 44 LDL 132 Doing very well with current med Essential hypertension 84573153 I10 stable taking meds with no issues carvedilol is well tolerated Type 2 michael betes mellitus 32459914 E11.22 i dont feel that he has active DM anymore and that he is clearly a impaired fasting glucose. a1c is 5.8 A1C stable at 5.7 and 5.5 previous with improved diet/exerc ise Dropped 30 lb over last year and continues to drop a bit Bronchiectasis 06237101 J47.9 quiet and inactive still has occ coughing will have him follow up with dr amador Gastroesop hageal reflux disease 374065679 K21.9 quiet on prilosec Impaired f asting glycemia 192493768 R73.01 a1c is 5.8 doing great [id number] Miky Hardy DO [facility] [address],[place] [address] 04/02/2021 08:15:22 04/02/2021 10:38:39 Atrial fibrillation 69606104 I48.91 pt states has had this for years currently is asymptomat ic and in NSR keep him on low dose carvedilol and we will have him off eliquis and put on asa given he has been stable for over 3 years will see ca rdiologist as necess Doing very well Bronchiectasis 84457835 J47.9 quiet and inactive still has occ coughing will have him follow up with dr amador Type 2 michael betes mellitus 73860619 E11.22 N18.1 i dont feel that he has active DM anymore and that he is clearly a impaired fasting glucose. a1c is 5.8 again and he feels he should be able to do better i told him he should be happy A1C stable at 5.8 and was 5.8 and 5.7 and 5.5 previous with improved diet/exerc ise Dropped 30 lb over last 2 year and continues to drop a bitincreas e his exercise Chronic ki dney disease stage 3A 047145943 N18.[address] pineda says about whether he has improved his numbersand if we can increase [id number] Miky Hardy DO [facility] [address] [facility] [address] [place] [place] [address] 07/06/2021 09:00:17 07/06/2021 09:35:47 Atrial fibrillation 82073463 I48.91 pt states has had this for years currently is asymptomat ic and in NSRwe will change him to metoprolol daily instead of carvedilol and he will take asa instead of eliquiswil l see ca rdiologist as necess Doing very well Hypercholesterolemia 136 07460 E78.00 HDL 44 LDL 132 Doing very well with current med Essential hypertension 43120422 I10 stable taking meds with no issues Chronic ki dney disease stage 3A 216478588 N18.[address] pineda says about whether he has improved his numbershe is done seeing dr pineda due to excellent lab etc [id number] Miky Hardy DO [facility] [address] [facility],[place] [address] 11/30/2021 08:53:13 11/30/2021 09:28:43 Essential hypertension 23772083 I10 stable taking meds with no issues Family his tory of malignant melanoma 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.7 dai syndrome but he does have a lot of sun exposurewi ll refer Atrial fibrillation 4943 6004 I48.91 pt states has had this for years currently is asymptomat ic and in NSRno symptoms at all [id number] Miky Hardy DO [facility] [address] [facility],[place] [address] 03/11/2022 09:50:05 03/11/2022 10:48:46 Atrial fibrillation 51462253 I48.91 pt states has had this for years currently is asymptomat ic and in NSRno symptoms at all Essential hypertension 26684644 I10 stable taking meds with no issues Hypercholesterolemia 136 13443 E78.00 expresses interest in taking a statin again we will order rosuvastat in Impaired f asting glycemia 620451200 R73.01 a1c is 5.7 and was 5.8 doing great Bronchiectasis 70966698 J47.9 quiet and inactive still has occ coughing will have him follow up with dr amador Chronic ki dney disease stage 3A 081519947 N18.[address] pineda says about whether he has improved his numbershe is done seeing dr pineda due to excellent lab etc Type 2 michael betes mellitus 35436979 E11.22 N18.31 i dont feel that he has active DM anymore and that he is clearly a impaired fasting glucose. a1c is 5.8 again and he feels he should be able to do better i told him he should be happy A1C stable at 5.7 was 5.8 and was 5.8 and 5.7 and 5.5 previous with improved diet/exerc isehjodee kept his wgt off for the past 4 years Active or passive immunization 137424605 Z23 utd [id number] Miky Hardy [facility] [address] [facility],[place] [address] 05/28/2022 13:49:36 05/28/2022 15:31:48 Active or passive immunization 536514459 Z23 utd Adult heal th examination 068858429 Z00.01 stop fasting stop eating once a day take the pred 40mg for 2 weeks then if ok go down to 30 and will follow up Atrial fibrillation 4943 6004 I48.91 pt states has had this for years currently is asymptomat ic and in NSRno symptoms at all Polymyalgi a rheumatica 72089365 M35.3 will start prednisone 40mg for 2 weeks and then decrease to 30 depending on how he is doing Type 2 michael betes mellitus 74021670 E11.22 N18.31 sugars went up to 300 since took some pred for the pmr so while on the prednisone we will start him on some metformin [id number] Miky Hardy, [facility] [address] [facility], [employer] [place] [address] 06/26/2022 08:14:49 06/26/2022 16:31:27 Polymyalgia rheumatica 24884109 M35.3 is now starting on 20mg he will be going for 2 weeks thwn decrease to 15 for 2 weeks then 10 but will call before going lower Type 2 michael betes mellitus 25900581 E11.22 N18.31 glucose is up and he is taking metformin twice [id number] Miky Hardy, [facility] [address] [facility], [facility] [address] 09/09/2022 09:55:34 09/09/2022 10:46:03 Type 2 diabetes mellitus 80028441 E11.22 N18.31 glucose is up and he is taking metformin twice Essential hypertension 18360169 I10 stable taking meds with no issues Polymyalgi a rheumatica 09038823 M35.3 so he is back to 15 mg and will try 12.5 mg and he will tell me in a few weeks whether its time to go down more Atrial fibrillation 4943 6004 I48.91 pt states has had this for years currently is asymptomat ic and in NSRno symptoms at all Advance care planning 71 8516569 Z71.89 utd [id number] Miky Hardy, [facility] [address] [facility],[place] [facility] [address] 12/31/2022 16:05:16 12/31/2022 16:49:15 Atrial fibrillation 03143513 I48.91 pt states has had this for years currently is asymptomat ic and in NSRno symptoms at all Hypercholesterolemia 136 77488 E78.00 expresses interest in taking a statin again we will order rosuvastat in Type 2 michael betes mellitus 72692198 E11.22 N18.31 glucose is up and he is taking metformin ohlrhn4u 6.5 Polymyalgi a rheumatica 00582236 M35.3 had a big flare so he is back to 17.5 mg and will try 15 mg and he will tell me in a few weeks whether its time to go down more [id number] Miky Hardy, [facility] [address] [facility],[place] [address] 03/07/2023 08:40:59 03/07/2023 11:17:57 Essential hypertension 10503569 I10 stable taking meds with no issues Hypercholesterolemia 136 51355 E78.00 expresses interest in taking a statin again we will order rosuvastat in Type 2 michael betes mellitus 10191719 E11.22 N18.31 glucose is up and he is taking metformin [id number] is at 7.1 was 6.5 Chronic ki dney disease stage 3A 231323222 N18.31 he is done with dr pineda kidney function is stable 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 a surveillia nce program Atrial fibrillation 4943 6004 I48.91 pt states has had this for years currently is asymptomat ic and in NSRno symptoms at all Polymyalgi a rheumatica 43193952 M35.3 had a big flare so he is back to 17.5 mg and will try 15 mg and he will tell me in a few weeks whether its time to go down more Adult bronchiectasis 510 86963 J47.9 quiet and no issues Renal cell carcinoma 702 430153 C64.[address] Avina in a couple months for surveillan ce [id number] Miky Hardy, [facility] [address] [facility] [address],[place] [address] 07/11/2023 08:59:28 07/11/2023 10:11:29 Type 2 diabetes mellitus 72601026 E11.22 N18.31 glucose is up and he is taking metformin [id number] is at 7.4 Essential hypertension 83913043 I10 stable taking meds with no issues Depression screening 171 827954 Z13.31 Negative Screening Positive s creening for depression on PHQ-9 (Patient Health Questionnaire 9) 1359787752 09093 Z13.31 Polymyalgi a rheumatica 28200306 M35.3 here and is bad again Gastroesop hageal reflux disease 021669231 K21.9 quiet on prilosec [id number] Miky Hardy [facility] [address] [facility],[place] [address] 11/24/2023 09:48:08 11/24/2023 11:16:33 Atrial fibrillation 45066221 I48.91 pt states has had this for years currently is asymptomat ic and in NSRno symptoms at all Essential hypertension 66392886 I10 stable taking meds with no issues Type 2 michael betes mellitus 46439211 E11.22 N18.31 glucose is up now to 9.3 due to diet and less so prednisone at 5mg and he is taking metformin twicewe will increase the metformin to 1 gm bida1c was at 7.4 Cellulitis of lower leg 880154576 L03.119 [id number] Miky Hardy [facility] [address] [facility] [address] [address] 01/19/2024 15:10:52 01/19/2024 16:42:09 Essential hypertension 49596765 I10 stable taking meds with no issues Hypercholesterolemia 136 60249 E78.00 expresses interest in taking a statin again we will order rosuvastat in Type 2 michael betes mellitus 43706216 E11.22 N18.31 glucose is up now to 9.3 due to diet and less so prednisone at 10mg and he is taking metformin twicewe will increase the metformin to 1 gm bida1c was at 7.4 Polymyalgi a rheumatica 48399431 M35.3 here and is bad again has tried to go below the 10mg but he exacerbate s ]states has been trying to get lower but dropping too quickly [id number] Miky Hardy [facility] [address],[place] [address] 02/17/2024 15:15:05 02/17/2024 16:17:45 Polymyalgia rheumatica 26480546 M35.3 here and is bad again has tried to go below the 10mg but he exacerbate s ]states has been trying to get lower but dropping too quickly continue the slow taper Type 2 michael betes mellitus 51034158 E11.22 N18.31 glucose was up now to 9.3 due to diet and less so prednisone at 10mg and he is taking metformin twicewe will increase the metformin to 1 gm bida1c was at 7.4 Essential hypertension 07071906 I10 stable taking meds with no issues [id number] DO [facility] [address],[place] [address] 04/28/2024 08:08:27 04/28/2024 09:55:54 Type 2 diabetes mellitus 88122207 E11.22 N18.31 a1c is down to 7.5 was up to to 9.3 due to diet and less so prednisone at 10mg and he is taking metformin twicewe will increase the metformin to 1 gm bida1c was at 7.4 Polymyalgi a rheumatica 61774702 M35.3 here and is bad again has tried to go below the 10mg but he exacerbate s ]states has been trying to get lower but dropping too quickly continue the slow taper Gastroesop hageal reflux disease 429790676 K21.9 quiet on prilosec Health Concerns Section Related Observation LastModified by Organization Detai ls LastModified Time None Recorded Concern Status LastModified by Organization Details LastModified Time None Recorded Advance Directives Directive None Recorded Payers Encounter Date Sequence Insurance Name Policy Number Policy Wu Covered Member ID Wu Member ID Guarantor Name 07/11/2023 1 [facility]: MEDICARE PPO BLUE (MEDICARE REPLACEMENT PPO) [id number] Vincetn Blancaka [id number] Vincent Kevin 11/24/2023 1 [facility]: MEDICARE PPO BLUE (MEDICARE REPLACEMENT PPO) [id number] Vincent Reyentka [id number] Vincent A Mientka 01/19/2024 1 [facility]: MEDICARE PPO BLUE (MEDICARE REPLACEMENT PPO) [id number] Vincent A Mientka [id number] Vincent A Mientka 02/17/2024 1 [facility]: MEDICARE PPO BLUE (MEDICARE REPLACEMENT PPO) [id number] Vincent A Mientka [id number] Vincent Reyentka 04/28/2024 1 [facility]: MEDICARE PPO BLUE (MEDICARE REPLACEMENT PPO) [id number] Vincent Reyentka [id number] Vincent Kevin Notes Date Note Type Note Provider Name and Address Organization Details Recorded Time 4 text/html relates that he feels he is having the same symptoms of arthralgia and myalgia as when he had the PMR flarerelates that he has been down to 7.5mg and is struggling today finally relentedand is taking 20mg a1c is7.4 esr up to 27 Miky Hardy DO [address] [place], [address], [facility] 07/11/2023 09:28:00 4 text/html here finally for a rechk but has not checked his lab for over a yearpoor diet he admitsstill on 5mg pred for PMRa1c is 9.3 was 7.2 a year agodoesnt chk his daily sugarsstates not watching diet and is cheating all the timeno cp no sob Miky Hardy DO [address] [place], [address], [facility] 11/24/2023 10:25:22 5 text/html MEDS- complaint, no ADRsDIET- non compliantcomplaint with low sugar, lean proteins, lots of veggies, low refined CHO, limits ETOH, doesn't use tobacco productsEXERCISE- does not exercise, recognizes the importance, struggles with motivationexercises regularly- typically:LIPIDS- at goalCMP- within normal limitsAIC- at goalMICROALBUMIN- within normal limitsEYE EXAM- last done:next due:FOOT EXAM- last done:next due: is still on pred but taking 7mg and is tolerating and he is slowoly hppnpkoyp3h is 7.5 and is stillocc sore at times but overall is tolerable Miky Hardy DO [address] [place], [address], [facility] 04/28/2024 09:52:35
--- OUTSIDE RECORDS SUMMARY | 2024-06-10 16:03 | XMS_ITS | Clinical Summary ---
Author Organization [facility], Address [address] [facility] [address] [place], [place] Phone Care Team Providers Care Control Equipment Electrician Name Role Phone Miky Hardy DO Primary Care Provider [phone] Allergies No known active allergies Medications Multiple Vitamins-Minera ls (MULTIVITAMIN ADULT PO) multivitamin Active Active Problems Problem Noted Date Diagnosed Date Essential hypertension 07/03/2020 Stage 3a chronic kidney disease 07/03/2020 Chronic kidney disease due to hypertension 06/14 Proteinuria 06/15/2019 Diabetes mellitus 05/28/2017 Overview (06/28/2020): Last Assessment & Plan: his weight mainly with diet and exercise. Basically with diet and exercise no longer diabetic Renal cell carcinoma 05/28/2017 Hyperlipidemia 02/07/2017 Overview (06/28/2020): Last Assessment & Plan: As mentioned we are going to repeat the lipids in 5 months. LDL goal should be less than 100 ideally Last Assessment & Plan: Also given his risk well-controlled to the guidelines Resolved Problems Problem Noted Date Diagnosed Date Resolved Date Hypertension 05/28/2017 07/03/2020 Overview (06/28/2020): Last Assessment & Plan: Well-controlled at this time Last Assessment & Plan: Well-controlled to the guidelines Immunizations Immunization Administration Dates Next Due Influenza Split High Dose Preservative Free IM 11/24/2018,11/11/2017,02/20/2017,2015 Influenza, Quadrivalent, Wit h Preservative 12/31/2019,11/24/2018,11/11/2017 Shingrix 05/04/2020 Zoster 05/04/2020,12/31/2019 Family History Medical History Relation Comments Cancer Brother Stomach cancer Father Lung cancer Mother Cancer Sister x2 Relation Status Comments Brother Father Mother Alive Sister Social History Tobacco Use Types Packs/Day Years Used Date Smoking Tobacco: Former Cigarettes Q uit: 04/24/2011 Alcohol Use Standard Drinks/Week Comments No 0 (1 standard drink = 0.6 oz pur e alcohol) Sex and Gender Information Value Date Recorded Sex Assigned at Not on file Legal Sex Male 4:32 PM EST Gender Identity Not on file Sexual Orientation Not on file Last Filed Vital Signs Vital Sign Reading Time Taken Comments Blood Pressure 122/70 07/02/2021 8:44 AM EDT Pulse 68 07/02/2021 8:44 AM EDT Temperature 35.8 ??C (96.5 ??F) 07/03/2020 1:28 PM ED T Respiratory Rate 14 07/02/2021 8:44 AM EDT Oxygen Saturation - - Inhaled Oxygen Concentration - - Weight 83.9 kg (185 lb) 07/02/2021 8:44 AM EDT Height 177.8 cm (5' 10 ) 07/02/2021 8:44 AM EDT Body Mass Index 26.54 07/02/2021 8:44 AM EDT Plan of Treatment Health Maintenance Due Date Last Done Comments Pneumococcal Vaccine: 50+ Years (1 of 2 - PCV) 1956 Colorectal Cancer Screening: Annual FOBT 1998 Colorectal Cancer Screening: Colonoscopy 1998 Colorectal Cancer Screening: Sigmoidoscopy 1998 Diabetes: Hemoglobin A1C 05/24/2019 Diabetes: Ophthalmology Exam 05/24/2019 Diabetes: Pedal Pulse Checked 05/24/2019 Diabetes: Sensory Foot Exam 05/24/2019 Diabetes: Visual Foot Exam 05/24/2019 Influenza Vaccine (Season Ended) 2024 12/31/2019, 11/24/2018, 11/24/2018, Additional history exists Hepatitis B Vaccine Aged Out No longe r eligible based on patient's age to complete this topic Insurance [facility] Care Teams Control Equipment Electrician Relationship Specialty Start Date End Date Miky Hardy DO [address] [place] [phone] PCP - General 01/05/19
--- OUTSIDE RECORDS SUMMARY | 2024-06-10 16:03 | XMS_ITS | Encounter Summary ---
Author Organization [facility], Address [address] [place] [address] Phone Care Team Providers Care Barrel Leveler Name Role Phone Miky Hardy DO Primary Care Provider [phone] Encounter Details Date Type Department Care Team (Late st Contact Info) Description 06/28/2022 Documentation Only [facility], - [address] [facility] [address] [place] [phone] Irasema Fagan MD Social History Tobacco Use Types Packs/Day Years Used Date Smoking Tobacco: Former Cigarettes Q uit: 04/24/2011 Alcohol Use Standard Drinks/Week Comments No 0 (1 standard drink = 0.6 oz pur e alcohol) Sex and Gender Information Value Date Recorded Sex Assigned at Not on file Legal Sex Male 4:32 PM EST Gender Identity Not on file Sexual Orientation Not on file documented as of this encounter Plan of Treatment Not on file documented as of this encounter Visit Diagnoses Not on filedocumented in this encounter Care Teams Barrel Leveler Relationship Specialty Start Date End Date Miky Hardy DO [address] [facility] [place] [phone] PCP - General 01/05/19 documented as of this encounter
--- OUTSIDE RECORDS SUMMARY | 2024-06-10 16:03 | XMS_ITS | Encounter Summary ---
Author Organization [facility], Address [address] [place] [address] Phone Care Team Providers Care Appraisal Analyst Name Role Phone Hayley Miky MARRERO Primary Care Provider Encounter Details Date Type Department Care Team ([facility] st Contact Info) Description 12/31/2019 Orders Only [facility] - [facility] [address] [facility] [address] [place] [phone] Irasema Fagan MD Chronic kidney disease, stage 3 (moderate) Social History Tobacco Use Types Packs/Day Years [...] documented as of this encounter Visit Diagnoses Diagnosis Chronic kidney disease, stage 3 (moderate) documented in this encounter Care Teams Appraisal Analyst Relationship Specialty Start Date End Date Miky Hardy DO [address] [facility] [phone] PCP - General 01/05/19 documented as of this encounter
--- OUTSIDE RECORDS SUMMARY | 2024-06-10 16:03 | XMS_ITS | Encounter Summary ---
Author Organization [facility], Address [address] [place] [address] Phone Care Team Providers Care Fox Raiser Name Role Phone Miky Hardy DO Primary Care Provider [phone] Encounter Details Date Type Department Care Team (Late st Contact Info) Description 06/28/2022 Documentation Only [facility], - [address] [facility] [address] [place] [phone] Irasema Fagan MD Social History Tobacco Use [...] on filedocumented in this encounter Care Teams Fox Raiser Relationship Specialty Start Date End Date Miky Hardy DO 6 [facility] [place] [phone] PCP - General 01/05/19 documented as of this encounter
--- OUTSIDE RECORDS SUMMARY | 2024-06-10 16:03 | XMS_ITS | Encounter Summary ---
Author Organization [facility] [place], Address [address] [place] [address] Phone Care Team Providers Care Bakery Chef Name Role Phone Hayley Miky MARRERO Primary Care Provider [phone] Encounter Details Date Type Department Care Team ([facility] st Contact Info) Description 06/30/2020 Orders Only [facility] [place] - [address] [facility] [address] [place] [phone] Irasema Fagan MD Chronic kidney disease, stage [...] (moderate) documented in this encounter Care Teams Bakery Chef Relationship Specialty Start Date End Date Miky Hardy DO 6 [facility] [place] [phone] PCP - General 01/05/19 documented as of this encounter
--- OUTSIDE RECORDS SUMMARY | 2024-06-10 16:03 | XMS_ITS | Encounter Summary ---
Author Organization [facility] [place], Address [address] [place] [address] Phone Care Team Providers Care Foxpro Developer Name Role Phone Miky Hardy DO Primary Care Provider [phone] Reason for Visit * Reason Comments Med Refill Encounter Details Date Type Department Care Team (Late st Contact Info) Description 08/02/2020 Refill [facility] - [facility] [address] [place] [phone] Irasema Fagan MD Social History Tobacco Use [...] on filedocumented in this encounter Care Teams Foxpro Developer Relationship Specialty Start Date End Date Miky Hardy DO 6 [facility] [phone] PCP - General 01/05/19 documented as of this encounter
== END 2024-06-10 13:19 | disposition home or self-care (01) ==
LOC: HO.US 13:18
PROVIDERS: PCP Internal Medicine; Visit Provider Urology
DX: C64.9 Malignant neoplasm of unspecified kidney, except renal pelvis (principal)
CPT/HCPCS: 76775

== ENCOUNTER → 2024-06-10 13:20 | Outpatient (BNV) | payer MEDICARE, SELFPAY | PROVIDERS: PCP Internal Medicine; Visit Provider Radiology Diagnostic Radiology | DX: N28.1 Cyst of kidney, acquired (principal) | CPT/HCPCS: 76775 ==

== ENCOUNTER 2024-06-22 07:49 | Outpatient (REF) | payer MEDICARE, SELFPAY ==
--- OUTSIDE RECORDS SUMMARY | 2024-06-22 07:52 | XMS_ITS | Clinical Summary ---
Author Organization [facility], Address [address] [facility] 3 [place], [place] Phone Care Team Providers Care Assistant Warehouse Manager Name Role Phone Miky Hardy DO Primary Care Provider [phone] Allergies No known active allergies Medications Multiple [...] 50+ Years (1 of 2 - PCV) 1969 Colorectal Cancer Screening: Annual FOBT 1998 Colorectal [...] patient's age to complete this topic Insurance [facility] [employer] Care Teams Assistant Warehouse Manager Relationship Specialty Start Date End Date Miky Hardy DO [address] [place] [phone] PCP - General 01/05/19
--- OUTSIDE RECORDS SUMMARY | 2024-06-22 07:52 | XMS_ITS | Encounter Summary ---
Author Organization [facility] [place], Address [address] [place] [address] Phone Care Team Providers Care Wireworker Supervisor Name Role Phone Miky Hardy DO Primary Care Provider [phone] Encounter Details Date Type Department Care Team (Late st Contact Info) Description 06/28/2022 Documentation Only [facility] [place], - [address] Dr Violet [address] [facility] [address] [place] [phone] Irasema Fagan MD Social History Tobacco Use [...] on filedocumented in this encounter Care Teams Wireworker Supervisor Relationship Specialty Start Date End Date Miky Hardy DO 6 [facility] [place] [phone] PCP - General 01/05/19 documented as of this encounter
--- OUTSIDE RECORDS SUMMARY | 2024-06-22 07:53 | XMS_ITS | Encounter Summary ---
Author Organization [facility] [place], Address [address] [place] [address] Phone Care Team Providers Care Rural Health Consultant Name Role Phone Hayley Miky MARRERO Primary Care Provider [phone] Encounter Details Date Type Department Care Team ([facility] st Contact Info) Description 06/30/2020 Orders Only [facility] [place] - [address] [facility] 3 [place] [phone] Irasema Fagan MD Chronic kidney disease, stage [...] (moderate) documented in this encounter Care Teams Rural Health Consultant Relationship Specialty Start Date End Date Miky Hardy DO 6 [facility] [place] [place] [phone] PCP - General 01/05/19 documented as of this encounter
--- OUTSIDE RECORDS SUMMARY | 2024-06-22 07:53 | XMS_ITS | Encounter Summary ---
Author Organization [facility] [place], Address [address] [place] [address] Phone Care Team Providers Care Product Steward Name Role Phone Hayley Miky MARRERO Primary Care Provider [phone] Encounter Details Date Type Department Care Team ([facility] st Contact Info) Description 12/31/2019 Orders Only [facility] [place] - [facility] 51 [facility] 3 [place] [phone] Irasema Fagan MD Chronic kidney disease, stage [...] (moderate) documented in this encounter Care Teams Product Steward Relationship Specialty Start Date End Date Miky Hardy DO 6 [facility] [place] [phone] PCP - General 01/05/19 documented as of this encounter
--- OUTSIDE RECORDS SUMMARY | 2024-06-22 07:53 | XMS_ITS | Data Portability ---
Author Organization [facility] Address [address] [place] [address] Assessment Encounter Date Assessment Date Assessment LastModified by Organization Details LastModified Time 07/11/2023 07/11/2023 [id number] [place] [id number] (PHERESIS NURSE) MDM MODERATE MUST MEET 2 OUT OF [...] COVERED Not available 07/11/2023 09:19:42 11/24/2023 11/24/2023 [address] [place] [address] (PHERESIS NURSE) MDM HIGH MUST MEET 2 OUT OF [...] COVERED Not available 11/24/2023 10:12:08 01/19/2024 01/19/2024 [id number] [place] [address] (PHERESIS NURSE) MDM MODERATE MUST MEET 2 OUT OF [...] COVERED Not available 01/19/2024 15:51:21 02/17/2024 02/17/2024 [address] [place] [address] (PHERESIS NURSE) MDM MODERATE MUST MEET 2 OUT OF [...] COVERED Not available 02/17/2024 16:08:57 04/28/2024 04/28/2024 [id number] [place] [address] (PHERESIS NURSE) : MDM LOW MUST MEET 2 OF [...] Lab HbA1c (hemoglobin A1c), blood 2023 024 [facility] (Outpatient), [address] [place] [address], [address], 5 14:26:49 HbA1c (hemoglobin A1c), blood 2024 025 [facility] (Outpatient), [address] [place], [address], 5 14:26:49 Referral None recorded. Procedures None recorded. Surgeries None recorded. Imaging None recorded. Medication Orders omeprazole 20 mg capsule,del ayed release 2024 025 [facility] #0447, [address] [place] [address], [address], 5 09:49:45 prednisone 1 mg tablet 2023 024 [facility] #0447, [address] [place], [address], 4 16:10:14 prednisone 5 mg tablet 2023 024 [facility] #0447, [address] [place] [address], [address], 4 16:10:14 prednisone 5 mg tablet 2023 024 [facility] #0447, [address] [place], [address], 4 15:51:07 prednisone 1 mg tablet 2023 024 [facility] #0447, [address] [place] [address], [address], 4 15:51:06 metformin 1,000 mg tablet 2023 024 [facility] #0447, [address] [place], [address], 4 10:24:22 doxycycline hyclate 100 mg tablet 2023 024 [facility] #0447, [address] [place], [address], 15:28:50 Silvadene 1 % topical cream 2023 024 [facility] #0447, [address] [place], [address], 10:24:21 omeprazole 20 mg capsule,del ayed release 2023 024 [facility] #0447, [address] [place], [address], 09:27:57 Patient TargetsNo targets recorded. Patient Instructions Encounter Date Encounter Id Patient Instructions Last Modified By Organization Details Last Modified Time 07/11/2023 [id number] polymyalgia rheumatica: care instructions Not available 07/11/2023 09:27:55 gastroesophageal reflux disease (GERD): care instructions Not available 07/11/2023 09:27:55 11/24/2023 [id number] pulse oximetry* Not available 11/24/2023 10:24:23 01/19/2024 [id number] polymyalgia rheumatica: care instructions Not available 01/19/2024 15:51:05 02/17/2024 [id number] high blood press ure: care instructions Not available 02/17/2024 16:09:16 learning about h igh blood pressure Not available 02/17/2024 16:09:16 04/28/2024 [id number] polymyalgia rheumatica: care instructions Not available 04/28/2024 [...] pulse oxime try* Result 98% Not Available [facility] [address] [facility] [address], [place], [address], 11/24/2023 08:03:15 04/23/19 25 04/23/2024 HbA1c (hemo globi n A1c), blood A1C 7.5 abnormal Not Available [facility] (Outpatient) [address] [place], [address], 04/23/2024 14:22:48 06/16/19 24 06/11/2023 US, duple x, retro perit oneum , limit ed No observ ation record ed. [email or web address] [facility] (Medical Records) [address] [place], [address], 06/17/2023 09:47:23 06/11/19 25 06/10/2024 US, guille y No observ ation record ed. [facility] (Medical Records) [address] [place], [address], 06/11/2024 06:44:32 Result Notes None recorded. 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 Not Available [facility] 0 12:50:42 Chronic kidney disease stage 3A 818007426 Active 2021 Miky Hardy DO [address] [facility], [place], [address], [facility] 2 10:22:08 Type 2 diabetes mellitus 96141444 [facility] 2022 [facility] 08:25:57 COVID-19 033244274 Active 2022 [facility] 4 08:26:04 Lipoma of chest wall 195723665 Active 2022 [facility] 4 08:25:57 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 [facility] 4 08:25:57 Cerebral hemorrha ge 091183986 Active 2017 [facility] 4 08:26:04 Gastroes ophageal reflux disease 919196786 Active 2017 [facility] 4 08:25:57 Hypercho lesterol emia 31400578 Active 2017 Alizaradha Gonzales [facility] 4 08:25:57 [facility]entia l hyperten enedina 82362438 Active 2017 Alizaradha Gonzales [facility] 4 08:25:57 Osteoart hritis of knee 122141592 Active 2017 Aliza Gonzales [facility] 4 08:25:57 Polyp of colon 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 8 11:20:39 Insomnia 849081299 Active 2017 Alizaradha ahn [facility] 4 08:25:57 Renal cell carcinom a 871152386 Active 2017 R Aliza ahn [facility] 4 08:25:57 Polymyal mulu rheumati ca 80387381 Active 2017 Aliza ahn [facility] 4 08:25:57 Type 2 diabetes mellitus 03985254 Completed 201710/29/2019 Removal Reason: now in pre diabetic state Aliza ahn [facility] 4 08:25:57 Adult bronchie ctasis 28142305 Active 2023 Aliza ahn [facility] 4 08:26:04 Cellulit is of lower leg 958546223 Active 2023 Alizaradha ahn [facility] 4 08:26:04 Notes:Some problems listed i n Document: #[id number] could not be added to this patient's chart. Please review this document and add these problems to the patient's chart manually as needed. Problem Notes None recorded. Procedures Surgical History Date Name Laterality Status Provider Name and Address Organization Details Recorded Time 05/07/19 25 Colonoscopy completed Miky Hardy DO [address] [place] [address], [phone], [facility] Internal [facility] 05/06/2024 18:37:55 09/06/19 20 Colonoscopy completed Miky Hardy DO [address] [place] [address], [phone], [facility] 09/10/2019 14:05:05 03/19/19 19 Colonoscopy completed Cony Dockery [facility] Internal [facility] 03/20/2018 08:26:29 Imaging Results Imaging Date Name Status LastModified by Organiz ation Details LastModified Time 06/11/2023 US, duplex, retroperiton eum, limited completed [email or web address] [facility] (Medical Records) [address] [place], [address], 06/17/2023 09:47:23 06/10/2024 US, kidney completed [facility] (Medical Records) [address] [place], [address], 06/11/2024 06:44:32 Procedure Notes None recorded. Medical Equipment None [...] Available Not Available Not Avai lable FreeStyle [place] Lite kit USE TO TEST BLOOD SUGAR [...] Available Not Available Not Available Fluzone High-Dose 2019-20 (PF) 180 mcg/0.5 mL intramuscul ar syringe [...] mg-100 mg tablets in a dose pack (Moderate Renal Dose) TAKE 2 TABLETS TWICE A DAY [...] Updated DateTime 4 177.8 cm 26.4 kg/m2 33716.9 2 g 66 /min 16 /min 96 % 96 % 98.1 [degF] 144 mm[Hg] 78 mm[Hg] Osbaldo Garcia [facility] 4 09:03:35 Date Recorded Body height Body mass index (BMI) Body weight Heart rate Oxygen saturation Oxygen saturation in Arterial blood by Pulse oximetry Systolic blood pressure Diastolic blood pressure Provider Name and Address Organization Details Last Updated DateTime 4 177.8 cm 26.3 kg/m2 68040.1 2 g 68 /min 98 % 98 % 130 mm[Hg] 80 mm[Hg] Aliza Gonzales [facility] 4 09:59:02 Date Recorded Body height Body mass index (BMI) Body weight Heart rate Oxygen saturation Oxygen saturation in Arterial blood by Pulse oximetry Systolic blood pressure Diastolic blood pressure Provider Name and Address Organization Details Last Updated DateTime 4 177.8 cm 26.3 kg/m2 60212.4 g 67 /min 98 % 98 % 130 mm[Hg] 80 mm[Hg] Batsheva Dinero [facility] 4 15:29:32 Date Recorded Body height Body mass index (BMI) Body weight Heart rate Oxygen saturation Oxygen saturation in Arterial blood by Pulse oximetry Systolic blood pressure Diastolic blood pressure Provider Name and Address Organization Details Last Updated DateTime 4 177.8 cm 26.4 kg/m2 71252 g 70 /min 98 % 98 % 130 mm[Hg] 80 mm[Hg] Aliza Gonzales [facility] 4 15:35:24 Social History Question Answer Notes LastModified by Organizat ion Details LastModified Time Tobacco Smoking Status Former Smoker Not Available [facility] 01/04/2020 03:36:24 What Was The Date Of [...] virus, quadrivalent, preservative 8 completed Not Available [facility] 11/29/2020 15:08:23 Tdap 4 completed Miky Hardy DO [address] [place] [address], [address], [facility] 12/07/2023 19:15:54 influenza, unspecified formulation 4 completed Miky Hardy DO [address] [place] [address], [address], [facility] 12/07/2023 19:16:16 Respiratory syncytial virus (RSV) vaccine, unspecified 4 completed Miky Hardy DO [address] [place] [address], [phone], [facility] 12/07/2023 19:17:08 Influenza, split virus, quadrivalent, preservative 9 completed Not Available [facility] 11/29/2020 15:08:23 zoster, unspecified formulation 0 completed Not Available [facility] 11/29/2020 15:08:23 Influenza, split virus, quadrivalent, preservative 0 completed Not Available [facility] 11/29/2020 15:08:23 zoster recombinant 1 completed Not Available [facility] 11/29/2020 15:08:23 Past Encounters Encounter ID Performer Location Encounter Start Date Encounter Closed Date Diagnosis/Indication Diagnosis SNOMED-CT Code Diagnosis ICD10 Code Diagnosis Note [id number] Miky Hardy [facility] [address] [facility], [place] [address] 09/22/2017 11:57:01 09/22/2017 13:56:09 Type 2 diabetes mellitus 69559649 E11.9 stable doing opk a1c is sl elevated but still ok Essential hypertension 77772208 I10 stable taking meds with no issues Gastroesop hageal reflux disease 523213270 K21.9 quiet on prilosec 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 9 [id number] Miky Hardy [facility] [address] [facility], [place] [address] 01/14/2018 11:37:57 01/14/2018 16:34:17 Abdominal aortic aneurysm screening 891969578 Z13.6 Hepatitis C screening 41 2168722 Z11.59 Dai syndrome 363977040 Z15.09 needs referral to gi for setting up a surveillia nce program Type 2 michael betes mellitus 16537305 E11.9 stable doing ok a1c is sl elevated at 6.9 but still ok Atrial fibrillation 4943 6004 I48.91 newly discovered but pt states has had this for years currently is asymptomat ic and in NSR will refer to cardiology and keep him on low dose carvedilol and asa [id number] Miky PriyaShayna Hardy [facility] [address] [facility],[place] [address] 02/13/2018 10:50:45 02/13/2018 11:36:37 Atrial fibrillation 11618070 I48.91 newly discovered but pt states has had this for years currently is asymptomat ic and in NSR keep him on low dose carvedilol and asa will be seeing cardiologi st on the of this month Hepatitis C screening 41 0184430 Z11.59 will order next lab Essential hypertension 84447872 I10 stable taking meds with no issues carvedilol is well tolerated Type 2 michael betes mellitus 68410173 E11.9 stable doing ok a1c is sl elevated at 6.9 but still ok [id number] Miky PowersShayna Hayley [facility] [address] [facility], [place] [address] 04/08/2018 11:55:15 04/08/2018 12:38:54 Atrial fibrillation 17673187 I48.91 newly discovered but pt states has had this for years currently is asymptomat ic and in NSR keep him on low dose carvedilol and asa was seen by cardiologi st on the of this dec but we did not receive any Type 2 michael betes mellitus 81364652 E11.9 a1c is pending but his fbs was 191 Essential hypertension 02606263 I10 stable taking meds with no issues carvedilol is well tolerated Renal diso rder due to type 2 diabetes mellitus 533779653 E11.22 [id number] Miky Hardy [facility] [address] [facility] [address], [place] [address] 07/22/2018 11:40:50 07/22/2018 12:18:10 Atrial fibrillation 48332262 I48.91 newly discovered but pt states has had this for years currently is asymptomat ic and in NSR keep him on low dose carvedilol and asa was seen by cardiologi st on the 31 of this dec but we did not receive any Hypercholesterolemia 136 84938 E78.00 will need to check in the next lab draw Type 2 michael betes mellitus 95213369 E11.9 a1c is 5.5 we will discontinu e the metformin! !!!!! Gastroesop hageal reflux disease 694054891 K21.9 quiet on prilosec Ab's s yndrome pupil 316612852 G90.2 dx by optho but i have no info had and MRI but no results on this but pt told was neg dont know of anyu follow up wi just following this Essential hypertension 54907181 I10 stable taking meds with no issues carvedilol is well tolerated Mass of chest wall [address]013 4000 R22.2 has large sebaceous cyst on chest wall will need referral [id number] Miky Hardy [facility] [address] [facility] [address],[place] [address] 11/17/2018 15:37:11 11/17/2018 16:04:23 Hypercholesterolemia 89057789 E78.00 will need to check in the next lab draw Atrial fibrillation 4943 6004 I48.91 t pt states has had this for years currently is asymptomat ic and in NSR keep him on low dose carvedilol and asa will see cardiologi st Essential hypertension 29933089 I10 stable taking meds with no issues carvedilol is well tolerated Type 2 michael betes mellitus 35371543 E11.9 a1c is 5.2, was 5.5 with discontinu ed metformin! !!!!! [id number] Miky Hardy DO [facility] [address] [facility] [address],[place] [address] 03/29/2019 13:19:00 03/29/2019 14:21:03 Type 2 diabetes mellitus 82776647 E11.9 A1C stable at 5.5 with improved diet/exerc ise Dropped 30 lb over last year Essential hypertension 69775933 I10 stable taking meds with no issues carvedilol is well tolerated Atrial fibrillation 4943 6004 I48.91 pt states has had this for years currently is asymptomat ic and in NSR keep him on low dose carvedilol and asa will see cardiologi st Doing very well Hypercholesterolemia 136 36117 E78.00 HDL 44 LDL 132 Doing very well with current med [id number] Miky Hardy [facility] [address] [facility] [address],[place] [address] 08/03/2019 13:33:00 08/03/2019 13:56:20 Atrial fibrillation 16185365 I48.91 pt states has had this for years currently is asymptomat ic and in NSR keep him on low dose carvedilol and asa will see cardiologi st Doing very well Essential hypertension 84817817 I10 stable taking meds with no issues carvedilol is well tolerated Type 2 michael betes mellitus 57313583 E11.9 A1C stable at 5.5 with improved diet/exerc ise Dropped 30 lb over last year Gastroesop hageal reflux disease 022922372 K21.9 quiet on prilosec [id number] Miky Hardy [facility] [address] [facility] [address],[place] [address] 10/29/2019 09:03:20 10/29/2019 10:19:43 Atrial fibrillation 37963745 I48.91 pt states has had this for years currently is asymptomat ic and in NSR keep him on low dose carvedilol and asa will see cardiologi st Doing very well Type 2 michael betes mellitus 06978635 E11.9 A1C stable at 5.7 and 5.5 previous with improved diet/exerc ise Dropped 30 lb over last year and continues to drop a bit Essential hypertension 18800047 I10 stable taking meds with no issues carvedilol is well tolerated Hepatitis C screening 41 6620578 Z11.59 will order next lab [id number] MELVIN HIRSCH [facility] Internal Medicine [address] [facility] [address],[place] [address] 01/21/2020 15:49:29 01/21/2020 16:23:27 Atrial fibrillation 99200563 I48.91 stable Lipoma of skin 679864420 D17.30 will do US to confirm, as patient has hx of Dai Disease [id number] Miky Hardy [facility] [address] [facility] [address],[place] [address] 05/12/2020 09:01:17 05/12/2020 09:39:45 Atrial fibrillation 99335597 I48.91 pt states has had this for years currently is asymptomat ic and in NSR keep him on low dose carvedilol and asa will see cardiologi st Doing very well Impaired f asting glycemia 758743350 R73.01 a1c is 5.5 doing great Essential hypertension 99285715 I10 stable taking meds with no issues carvedilol is well tolerated [id number] Miky Hardy [facility] [address] [facility] [address],[place] [address] 10/06/2020 08:49:22 10/06/2020 09:54:34 Atrial fibrillation 05684788 I48.91 pt states has had this for years currently is asymptomat ic and in NSR keep him on low dose carvedilol and asa will see cardiologi st Doing very well Hypercholesterolemia 136 35966 E78.00 HDL 44 LDL 132 Doing very well with current med Essential hypertension 65064459 I10 stable taking meds with no issues carvedilol is well tolerated Type 2 michael betes mellitus 79848367 E11.22 i dont feel that he has active DM anymore and that he is clearly a impaired fasting glucose. a1c is 5.8 A1C stable at 5.7 and 5.5 previous with improved diet/exerc ise Dropped 30 lb over last year and continues to drop a bit Bronchiectasis 44685413 J47.9 quiet and inactive still has occ coughing will have him follow up with dr amador Gastroesop hageal reflux disease 323998852 K21.9 quiet on prilosec Impaired f asting glycemia 549839205 R73.01 a1c is 5.8 doing great [id number] Miky Hardy [facility] [address] [facility] [address],[place] [address] 04/02/2021 08:15:22 04/02/2021 10:38:39 Atrial fibrillation 08290189 I48.91 pt states has had this for years currently is asymptomat ic and in NSR keep him on low dose carvedilol and we will have him off eliquis and put on asa given he has been stable for over 3 years will see ca rdiologist as necess Doing very well Bronchiectasis 69997624 J47.9 quiet and inactive still has occ coughing will have him follow up with dr amador Type 2 michael betes mellitus 91794058 E11.22 N18.1 i dont feel that he [...] exercise Chronic ki dney disease stage 3A 916916822 N18.[address] pineda says about whether he has improved his numbersand if we can increase [id number] Miky Hardy [facility] [address] [facility],[place] [facility] [place] [address] 07/06/2021 09:00:17 07/06/2021 09:35:47 Atrial fibrillation 13518185 I48.91 pt states has had this for years currently is asymptomat ic and in NSRwe will change him to metoprolol daily instead of carvedilol and he will take asa instead of eliquiswil l see ca rdiologist as necess Doing very well Hypercholesterolemia 136 11521 E78.00 HDL 44 LDL 132 Doing very well with current med Essential hypertension 06623165 I10 stable taking meds with no issues Chronic ki dney disease stage 3A 854123179 N18.[address] pineda says about whether he has improved his numbershe is done seeing dr pineda due to excellent lab etc [id number] Miky Hardy [facility] [address] [facility],[place] [address] 11/30/2021 08:53:13 11/30/2021 09:28:43 Essential hypertension 64865980 I10 stable taking meds with no issues Family his tory of malignant melanoma 405447820 Z80.7 dai syndrome but he does have a lot of sun exposurewi ll refer Atrial fibrillation 4943 6004 I48.91 pt states has had this for years currently is asymptomat ic and in NSRno symptoms at all [id number] Miky Hardy DO [facility] [address] [facility],[place] [address] 03/11/2022 09:50:05 03/11/2022 10:48:46 Atrial fibrillation 59790087 I48.91 pt states has had this for years currently is asymptomat ic and in NSRno symptoms at all Essential hypertension 87518727 I10 stable taking meds with no issues Hypercholesterolemia 136 72420 E78.00 expresses interest in taking a statin again we will order rosuvastat in Impaired f asting glycemia 337045393 R73.01 a1c is 5.7 and was 5.8 doing great Bronchiectasis 89082985 J47.9 quiet and inactive still has occ coughing will have him follow up with dr amador Chronic ki dney disease stage 3A 849456655 N18.[address] pineda says about whether he has improved his numbershe is done seeing dr pineda due to excellent lab etc Type 2 michael betes mellitus 92597659 E11.22 N18.31 i dont feel that he [...] past 4 years Active or passive immunization 383218056 Z23 utd [id number] Miky Hardy, [facility] [address] [facility],[place] [address] 05/28/2022 13:49:36 05/28/2022 15:31:48 Active or passive immunization 374906995 Z23 utd Adult heal th examination 695248970 Z00.01 stop fasting stop eating once a day take the pred 40mg for 2 weeks then if ok go down to 30 and will follow up Atrial fibrillation 4943 6004 I48.91 pt states has had this for years currently is asymptomat ic and in NSRno symptoms at all Polymyalgi a rheumatica 80344774 M35.3 will start prednisone 40mg for 2 weeks and then decrease to 30 depending on how he is doing Type 2 michael betes mellitus 69368352 E11.22 N18.31 sugars went up to 300 since took some pred for the pmr so while on the prednisone we will start him on some metformin [id number] Miky Hardy [facility] [address] [facility],[place] [address] 06/26/2022 08:14:49 06/26/2022 16:31:27 Polymyalgia rheumatica 57684819 M35.3 is now starting on 20mg he will be going for 2 weeks thwn decrease to 15 for 2 weeks then 10 but will call before going lower Type 2 michael betes mellitus 31314708 E11.22 N18.31 glucose is up and he is taking metformin twice [id number] Miky Hardy [facility] [address] [facility] [place] [address] 09/09/2022 09:55:34 09/09/2022 10:46:03 Type 2 diabetes mellitus [id number] E11.22 N18.31 glucose is up and he is taking metformin twice Essential hypertension 92678248 I10 stable taking meds with no issues Polymyalgi a rheumatica 93357624 M35.3 so he is back to 15 mg and will try 12.5 mg and he will tell me in a few weeks whether its time to go down more Atrial fibrillation 4943 6004 I48.91 pt states has had this for years currently is asymptomat ic and in NSRno symptoms at all Advance care planning 71 7838638 Z71.89 utd [id number] Miky Hardy [facility] [address] [facility],[place] [address] 12/31/2022 16:05:16 12/31/2022 16:49:15 Atrial fibrillation 68769361 I48.91 pt states has had this for years currently is asymptomat ic and in NSRno symptoms at all Hypercholesterolemia 136 89992 E78.00 expresses interest in taking a statin again we will order rosuvastat in Type 2 michael betes mellitus 04504810 E11.22 N18.31 glucose is up and he is taking metformin wtykpx4m 6.5 Polymyalgi a rheumatica 15534149 M35.3 had a big flare so he is back to 17.5 mg and will try 15 mg and he will tell me in a few weeks whether its time to go down more [id number] Miky Hardy, [facility] [address] [facility], [place] [address] 03/07/2023 08:40:59 03/07/2023 11:17:57 Essential hypertension 25963481 I10 stable taking meds with no issues Hypercholesterolemia 136 63780 E78.00 expresses interest in taking a statin again we will order rosuvastat in Type 2 michael betes mellitus 50615047 E11.22 N18.31 glucose is up and he is taking metformin oxvdba5z is at 7.1 was 6.5 Chronic ki dney disease stage 3A 732427196 N18.31 he is done with dr pineda kidney function is stable Dai syndrome 265529686 Z15.09 a surveillia nce program Atrial fibrillation 4943 6004 I48.91 pt states has had this for years currently is asymptomat ic and in NSRno symptoms at all Polymyalgi a rheumatica 11269245 M35.3 had a big flare so he is back to 17.5 mg and will try 15 mg and he will tell me in a few weeks whether its time to go down more Adult bronchiectasis 510 15668 J47.9 quiet and no issues Renal cell carcinoma 702 584911 C64.[address] Avina in a couple months for surveillan ce [id number] Miky Hardy, [facility] [address] [facility] [address],[place] [address] 07/11/2023 08:59:28 07/11/2023 10:11:29 Type 2 diabetes mellitus 72205291 E11.22 N18.31 glucose is up and he is taking metformin dbgzic4j is at 7.4 Essential hypertension 88644685 I10 stable taking meds with no issues Depression screening 171 962982 Z13.31 Negative Screening Positive s creening for depression on PHQ-9 (Patient Health Questionnaire 9) [id number] 43004 Z13.31 Polymyalgi a rheumatica 57742294 M35.3 here and is bad again Gastroesop hageal reflux disease 277916552 K21.9 quiet on prilosec [id number] Miky Hardy [facility] [address] [facility] [address],[place] [address] 11/24/2023 09:48:08 11/24/2023 11:16:33 Atrial fibrillation 00212888 I48.91 pt states has had this for years currently is asymptomat ic and in NSRno symptoms at all Essential hypertension 59166424 I10 stable taking meds with no issues Type 2 michael betes mellitus 34573352 E11.22 N18.31 glucose is up now to 9.3 due to diet and less so prednisone at 5mg and he is taking metformin twicewe will increase the metformin to 1 gm bida1c was at 7.4 Cellulitis of lower leg 740379550 L03.119 [id number] Miky Hardy [facility] [address] [facility] [address],[place] [address] 01/19/2024 15:10:52 01/19/2024 16:42:09 Essential hypertension 15052562 I10 stable taking meds with no issues Hypercholesterolemia 136 28137 E78.00 expresses interest in taking a statin again we will order rosuvastat in Type 2 michael betes mellitus 75934150 E11.22 N18.31 glucose is up now to 9.3 due to diet and less so prednisone at 10mg and he is taking metformin twicewe will increase the metformin to 1 gm bida1c was at 7.4 Polymyalgi a rheumatica 96489849 M35.3 here and is bad again has tried to go below the 10mg but he exacerbate s ]states has been trying to get lower but dropping too quickly [id number] Miky Hardy [facility] [address] [facility] [address] [address] 02/17/2024 15:15:05 02/17/2024 16:17:45 Polymyalgia rheumatica 66315808 M35.3 here and is bad again has tried to go below the 10mg but he exacerbate s ]states has been trying to get lower but dropping too quickly continue the slow taper Type 2 michale betes mellitus 38257150 E11.22 N18.31 glucose was up now to 9.3 due to diet and less so prednisone at 10mg and he is taking metformin twicewe will increase the metformin to 1 gm bida1c was at 7.4 Essential hypertension 17445641 I10 stable taking meds with no issues [id number] DO Joey Ngo [facility] [address] [facility] [address],[place] [address] 04/28/2024 08:08:27 04/28/2024 09:55:54 Type 2 diabetes mellitus 53733154 E11.22 N18.31 a1c is down to 7.5 was up to to 9.3 due to diet and less so prednisone at 10mg and he is taking metformin twicewe will increase the metformin to 1 gm bida1c was at 7.4 Polymyalgi a rheumatica 88399822 M35.3 here and is bad again has tried to go below the 10mg but he exacerbate s ]states has been trying to get lower but dropping too quickly continue the slow taper Gastroesop hageal reflux disease 314641895 K21.9 quiet on prilosec Health Concerns Section Related Observation LastModified by Organization Detai ls LastModified Time None Recorded Concern Status LastModified by Organization Details LastModified Time None Recorded Advance Directives Directive None Recorded Payers Encounter Date Sequence Insurance Name Policy Number Policy Wu Covered Member ID Wu Member ID Guarantor Name 07/11/2023 1 [facility]: MEDICARE PPO BLUE (MEDICARE REPLACEMENT PPO) [id number] Vincent Kevin [id number] Vincent Kevin 11/24/2023 1 [facility]: MEDICARE PPO BLUE (MEDICARE REPLACEMENT PPO) [id number] Vincent Blancaka [id number] Vincent Powers [place] 01/19/2024 1 [facility]: MEDICARE PPO BLUE (MEDICARE REPLACEMENT PPO) [id number] Vincent Reyentka [id number] Vincent Blancaka 02/17/2024 1 [facility]: MEDICARE PPO BLUE (MEDICARE REPLACEMENT PPO) [id number] Vincent Blancaka [id number] Vincent Reyentka 04/28/2024 1 [facility]: MEDICARE PPO BLUE (MEDICARE REPLACEMENT PPO) [id number] Vincent Kevin [id number] Vincent Kevin Notes Date Note Type [...] up to 27 Miky Hardy DO [address] [place], [address], [facility] 07/11/2023 09:28:00 4 text/html here finally for a rechk but has not checked his lab for over a yearpoor diet he admitsstill on 5mg pred for PMRa1c is 9.3 was 7.2 a year agodoesnt chk his daily sugarsstates not watching diet and is cheating all the timeno cp no sob Miky Hardy DO [address] [place], [address], [facility] 11/24/2023 10:25:22 5 text/html MEDS- [...] and is tolerating and he is slowoly pbretwvcm3e is 7.5 and is stillocc sore at times but overall is tolerable Miky Hardy DO [address] [place], [address], [facility] 04/28/2024 09:52:35
--- OUTSIDE RECORDS SUMMARY | 2024-06-22 07:53 | XMS_ITS | Encounter Summary ---
Author Organization [facility], Address [address] [place] [address] Phone Care Team Providers Care Firestopper Installer Name Role Phone Miky Hardy DO Primary Care Provider [phone] Reason for Visit * Reason Comments Med Refill Encounter Details Date Type Department Care Team (Late st Contact Info) Description 08/02/2020 [facility]ill [facility] [address] [facility] [address] [place] [phone] Irasema Fagan MD Social History Tobacco Use [...] on filedocumented in this encounter Care Teams Firestopper Installer Relationship Specialty Start Date End Date Miky Hardy DO [address] [facility] [address] PCP - General 01/05/19 documented as of this encounter
--- OUTSIDE RECORDS SUMMARY | 2024-06-22 07:53 | XMS_ITS | Encounter Summary ---
Author Organization [facility], Address [address] [place] [address] Phone Care Team Providers Care Fabric Worker Fitter Name Role Phone Miky Hardy DO Primary Care Provider [phone] Encounter Details Date Type Department Care Team (Late st Contact Info) Description 06/28/2022 Documentation Only [facility], - [address] [facility] [address] [place] [phone] Irasema Fagan MD Social History Tobacco Use [...] on filedocumented in this encounter Care Teams Fabric Worker Fitter Relationship Specialty Start Date End Date Miky Hardy DO 6 [facility] [place] [address] PCP - General 01/05/19 documented as of this encounter
[2024-06-22 10:00] LABS: Prostate Specific Antigen 3.15 ng/mL (<0.05-4.0)
== END 2024-06-22 07:50 | disposition home or self-care (01) ==
LOC: HO.LAB 07:49
PROVIDERS: PCP Internal Medicine; Visit Provider Urology
DX: C64.9 Malignant neoplasm of unspecified kidney, except renal pelvis (principal); Z12.5 Encounter for screening for malignant neoplasm of prostate
CPT/HCPCS: 36415; 84153

== ENCOUNTER 2024-06-23 08:41 | Outpatient (AMB) | payer MEDICARE, SELFPAY ==
--- NOTE | 2024-06-23 08:49 | A.OFFVIS_ITS ---
Intake Visit Reasons: 1y/US/PSA(psa?) Intake Note: Patient is Present for 1Y Follow Up/US Urology Medication: NONE Antibiotic Allergies: None Blood Thinners:None Waste Reduction Coordinator Required: No Allergies No Known Allergies Allergy (Verified 06/23/24 08:50) HPI Comments Details: Niru is a pleasant male. He is a patient of Dr. Hardy. Seen for the following urologic conditions - lower urinary tract symptoms - renal carcinoma Has history of Gonzales syndrome Recommend yearly follow-up Renal ultrasound stable Contrast imaging next year PVR 7cc Off tamsulosin Renal carcinoma - right Cryoablation performed 2011 Surveillance imaging - 10/18 CT scan ablation zone right lower pole 3.5 cm. Soft tissue nodule calcification. No evidence of IV enhancement - 05/22 renal ultrasound right kidney changes stable, small bilateral cysts less than 8 mm - 05/23 renal ultrasound right kidney stable - 05/24 renal ultrasound stable cyst and scarring - 05/25 renal ultrasound stable changes right side of ablation zone Lower urinary tract symptoms Longstanding symptoms Current management no medications, previously tamsulosin PSA 2019 1.4, 05/23 3.3, 06/25 3.2 PFSH Medical History Carcinoma of kidney Review of Systems Const Denies chills and Denies fever(s) Card Reports no additional complaints and Denies syncope Resp Denies cough GI Denies abdominal pain and Denies heartburn Reports as per HPI and Denies change in libido Neuro Denies syncope Psych Denies change in libido Endo Denies change in libido Physical Exam Const General: cooperative, healthy appearing, comfortable and no acute distress Orientation/consciousness: patient oriented x3 HEENT Face and sinus: Yes normal facial exam Mouth: moist mucous membranes Neck Neck: Yes normal visual inspection, Yes full ROM and Yes trachea midline Chest Chest palpation & inspection: normal inspection of the chest Resp Effort & Inspection: normal respiratory effort, able to speak in complete sentences and no respiratory distress GI Inspection: Yes normal to inspection Back/Spine/Pelvis Cervical Spine: normal cervical lordosis Thoracic/Lumbar Spine: thoracic and lumbar spine normal to inspection Skin General skin exam: no rashes or lesions noted Neuro General: patient oriented x3, gait normal, tone normal and moves all extremities Extrem General: Yes normal to inspection and Yes capillary refill normal Assessment & Plan Assessment & Plan (1) Carcinoma of kidney: Code(s): C64.9 - Malignant neoplasm of unspecified kidney, except renal pelvis Category: Medical (2) BPH w urinary obs/LUTS: Code(s): N40.1 - Benign prostatic hyperplasia with lower urinary tract symptoms; N13.8 - Other obstructive and reflux uropathy Category: Medical Plan Twelve month follow-up MRI Orders: Orders MR abdomen wo/w con 1 Year C64.9 - Malignant neoplasm of unspecified kidney, except renal pelvis Prostate Specific Antigen 12 Months C64.9 - Malignant neoplasm of unspecified kidney, except renal pelvis Patient Instructions: This note is constructed using voice recognition software. While every effort has been made to ensure accuracy safety pin assembling machine operator errors may have been included. Imaging studies, laboratory and physical exam results were discussed and reviewed in detail. No major barriers to patient understanding were identified. An opportunity to ask questions regarding the treatment plan was provided. All questions were answered. The patient expressed understanding and agreement with the above treatment plan. The patient is aware they should contact our office by phone for worsening of their current condition or the appearance of new urologic symptoms. Compliance is encouraged with any medications and followup testing that is ordered. It is a privilege to participate in the urologic care of your patient. If you have any questions or concerns regarding treatment for the above conditions, or other urologic issues, please do not hesitate to contact me. The office telepho ne contact is [phone]. Sincerely, Dr Shreyas Avina MD, [facility] - Urology Compassionate Specialist Care for the Genitourinary System Coding Level of Care Code Est Pt Level 4 (16234) Complex EM visit Add On G2211 Diagnoses Carcinoma of kidney C64.9 BPH w urinary obs/LUTS N40.1; N13.8
--- OUTSIDE RECORDS SUMMARY | 2024-06-23 09:09 | XMS_ITS | Encounter Summary ---
Author Organization [facility], Address [address] [place] [address] Phone Care Team Providers Care Chief Deputy Sheriff Name Role Phone Miky Hardy DO Primary Care Provider [phone] Encounter Details Date Type Department Care Team (Late st Contact Info) Description 06/28/2022 Documentation Only [facility], - [address] [facility] [place] [address] [place] [phone] Irasema Fagan MD Social History Tobacco Use [...] on filedocumented in this encounter Care Teams Chief Deputy Sheriff Relationship Specialty Start Date End Date Miky Hardy DO 6 [facility] [place] [address] PCP - General 01/05/19 documented as of this encounter
--- OUTSIDE RECORDS SUMMARY | 2024-06-23 09:09 | XMS_ITS | Encounter Summary ---
Author Organization [facility], Address [address] [place] [address] Phone Care Team Providers Care Letter Carrier Name Role Phone Hayley Miky MARRERO Primary Care Provider [phone] Encounter Details Date Type Department Care Team ([facility] st Contact Info) Description 12/31/2019 Orders Only [facility] - [facility] [address] [facility] 3 [place] [phone] Irasema Fagan MD Chronic kidney disease, stage [...] (moderate) documented in this encounter Care Teams Letter Carrier Relationship Specialty Start Date End Date Miky Hardy DO 6 [facility] [place] [phone] PCP - General 01/05/19 documented as of this encounter
--- OUTSIDE RECORDS SUMMARY | 2024-06-23 09:09 | XMS_ITS | Encounter Summary ---
Author Organization [facility], Address [address] [place] [address] Phone Care Team Providers Care Cloth Stock Sorter Name Role Phone Miky Hardy DO Primary Care Provider [phone] Reason for Visit * Reason Comments Med Refill Encounter Details Date Type Department Care Team (Late st Contact Info) Description 08/02/2020 Refill [facility] [address] [facility] 3 [place] [phone] Irasema Fagan MD Social History Tobacco Use [...] on filedocumented in this encounter Care Teams Cloth Stock Sorter Relationship Specialty Start Date End Date Miky Hardy DO 6 [facility] [place] [phone] PCP - General 01/05/19 documented as of this encounter
--- OUTSIDE RECORDS SUMMARY | 2024-06-23 09:09 | XMS_ITS | Clinical Summary ---
Author Organization [facility], Address [address] [facility] 3 [place], [place] Phone Care Team Providers Care Warranty Manager Name Role Phone Miky Hardy DO Primary Care Provider [phone] Allergies No known active allergies Medications Multiple [...] patient's age to complete this topic Insurance [facility] Care Teams Warranty Manager Relationship Specialty Start Date End Date Miky Hardy DO [address] [place] [address] PCP - General 01/05/19
--- OUTSIDE RECORDS SUMMARY | 2024-06-23 09:09 | XMS_ITS | Encounter Summary ---
Author Organization [facility], Address [address] [place] [address] Phone Care Team Providers Care Music Therapist [employer] Name Role Phone Hayley Miky MARRERO Primary Care Provider Encounter Details Date Type Department Care Team ([facility] st Contact Info) Description 06/30/2020 Orders Only [facility] - [address] [facility] 3 [place] [phone] Irasema Fagan MD Chronic kidney disease, stage [...] (moderate) documented in this encounter Care Teams Music Therapist [employer] Relationship Specialty Start Date End Date Miky Hardy DO 6 [facility] [place] [phone] PCP - General 01/05/19 documented as of this encounter
--- OUTSIDE RECORDS SUMMARY | 2024-06-23 09:09 | XMS_ITS | Encounter Summary ---
Author Organization [facility], Address [address] [place] [address] Phone Care Team Providers Care Chiropractor Sole Practitioner Name Role Phone Miky Hardy DO Primary Care Provider [phone] Encounter Details Date Type Department Care Team (Late st Contact Info) Description 06/28/2022 Documentation Only [facility], - [address] [facility] [address] [place] [phone] Irasema Fagan MD Social History Tobacco Use [...] on filedocumented in this encounter Care Teams Chiropractor Sole Practitioner Relationship Specialty Start Date End Date Miky Hardy DO 6 [facility] [place] [address] PCP - General 01/05/19 documented as of this encounter
--- OUTSIDE RECORDS SUMMARY | 2024-06-23 09:09 | XMS_ITS | Data Portability ---
Author [facility] Address [address] [place] [address] Assessment Encounter Date Assessment Date Assessment LastModified by Organization Details LastModified Time 07/11/2023 07/11/2023 [id number] [place] [id number] ([employer]) MDM MODERATE MUST MEET 2 OUT OF [...] COVERED Not available 07/11/2023 09:19:42 11/24/2023 11/24/2023 [id number] [place] [id number] ([employer]) MDM HIGH MUST MEET 2 OUT OF [...] COVERED Not available 11/24/2023 10:12:08 01/19/2024 01/19/2024 [id number] [place] [id number] ([employer]) MDM MODERATE MUST MEET 2 OUT OF [...] COVERED Not available 01/19/2024 15:51:21 02/17/2024 02/17/2024 [id number] [place] [id number] ([employer]) MDM MODERATE MUST MEET 2 OUT OF [...] COVERED Not available 02/17/2024 16:08:57 04/28/2024 04/28/2024 [id number] [place] [address] ([employer]) : MDM LOW MUST MEET 2 OF [...] Lab HbA1c (hemoglobin A1c), blood 2023 024 [facility] (Outpatient), [address] [place] [address], [address], 5 14:26:49 HbA1c (hemoglobin A1c), blood 2024 025 [facility] (Outpatient), [address] [place], [address], 5 14:26:49 Referral None recorded. Procedures None recorded. Surgeries None recorded. Imaging None recorded. Medication Orders omeprazole 20 mg capsule,del ayed release 2024 025 [facility] #0447, [address] [place] [address], [address], 5 09:49:45 prednisone 1 mg tablet 2023 024 [facility]0447, [address] [place], [address], 4 16:10:14 prednisone 5 mg tablet 2023 024 [facility]044[facility], [address] [place] [address], [address], 4 16:10:14 prednisone 5 mg tablet 2023 024 [facility]044[facility], [address] [place], [address], 4 15:51:07 prednisone 1 mg tablet 2023 024 [facility]044[facility], [address] [place] [address], [address], 4 15:51:06 metformin 1,000 mg tablet 2023 024 [facility]044[facility], [address] [place], [address], 4 10:24:22 doxycycline hyclate 100 mg tablet 2023 024 [facility]0447, [address] [place], [address], 15:28:50 Silvadene 1 % topical cream 2023 024 [facility]0447, [address] [place], [address], 10:24:21 omeprazole 20 mg capsule,del ayed release 2023 024 [facility]0447, [address] [place], [address], 09:27:57 Patient TargetsNo targets recorded. Patient Instructions Encounter Date Encounter Id Patient Instructions Last Modified By Organization Details Last Modified Time 07/11/2023 [id number] polymyalgia rheumatica: care instructions Not available 07/11/2023 09:27:55 gastroesophageal reflux disease (GERD): care instructions Not available 07/11/2023 09:27:55 11/24/2023 [id number] pulse oximetry* Not available 11/24/2023 10:24:23 01/19/2024 [id number] polymyalgia rheumatica: care instructions Not available 01/19/2024 15:51:05 02/17/2024 [id number] high blood press ure: care instructions Not available 02/17/2024 16:09:16 learning about h igh blood pressure Not available 02/17/2024 16:09:16 04/28/2024 [id number] polymyalgia rheumatica: care instructions Not available 04/28/2024 [...] pulse oxime try* Result 98% Not Available [facility] [address] [facility] [address], [place], [address], 11/24/2023 08:03:15 04/23/19 25 04/23/2024 HbA1c (hemo globi n A1c), blood A1C 7.5 abnormal Not Available [facility] (Outpatient) [address] [place], [address], 04/23/2024 14:22:48 06/16/19 24 06/11/2023 US, duple x, retro perit oneum , limit ed No observ ation record ed. [email or web address] [facility] (Medical Records) [address] [place], [address], 06/17/2023 09:47:23 06/11/19 25 06/10/2024 US, guille y No observ ation record ed. [facility] (Medical Records) [address] [place], [address], 06/11/2024 06:44:32 Result Notes None recorded. 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 Not Available [facility] 0 12:50:42 Chronic kidney disease stage 3A 961707568 Active 2021 Miky Hardy DO [address] [facility], [place], [address], [facility] 2 10:22:08 Type 2 diabetes mellitus 01856321 [facility] 08:25[facility]57 COVID-19 654179365 [facility] 4 08:26:04 Lipoma of chest wall 300758444 [facility] 4 08:25:57 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[facility] 2017 [facility] 4 08:25:57 Cerebral hemorrha ge 945788080 Active 2017 [facility] 4 08:26:04 Gastroes ophageal reflux disease 758877847 Active 2017 [facility] 4 08:25:57 Hypercho lesterol emia 64820124 Active 2017 Alizaradha Gonzales [facility] 4 08:25:57 [facility] hyperten enedina 05062818 Active 2017 Alizaradha Gonzales [facility] 4 08:25:57 Osteoart hritis of knee 675274697 Active 2017 Aliza Gonzales [facility] 4 08:25:57 Polyp of colon 04285058 Active 2017 hyperpla stic Alizaradha Gonzales [facility] 4 08:26:04 Impaired fasting glycemia 309628346 Completed 201702/13/2018 Miky Hardy DO [address] [place] [address], [address], [facility] 4 10:11:54 Family history of diabetes mellitus type 2 833604351 Completed 201702/13/2018 Miky Hardy DO [address] [place], [address], [facility] 8 11:20:39 Insomnia 507500689 Active 2017 Alizaradha ahn [facility] 4 08:25:57 Renal cell carcinom a 333985076 Active 2017 R Aliza ahn [facility] 4 08:25:57 Polymyal mulu rheumati ca 72090781 Active 2017 Aliza ahn [facility] 4 08:25:57 Type 2 diabetes mellitus 13924645 Completed 201710/29/2019 Removal Reason: now in pre diabetic state Aliza ahn [facility] 4 08:25:57 Adult bronchie ctasis 88835901 Active 2023 Aliza ahn [facility] 4 08:26:04 Cellulit is of lower leg 211127683 Active 2023 Alizaradha ahn [facility] 4 08:26:04 Notes:Some problems listed i n Document: #[id number] could not be added to this patient's chart. Please review this document and add these problems to the patient's chart manually as needed. Problem Notes None recorded. Procedures Surgical History Date Name Laterality Status Provider Name and Address Organization Details Recorded Time 05/07/19 25 Colonoscopy completed Miky Hardy DO [address] [place] [address], [phone], [facility] Internal [facility] 05/06/2024 18:37:55 09/06/19 20 Colonoscopy completed Miky Hardy DO [address] [place] [address], [phone], [facility] 09/10/2019 14:05:05 03/19/19 19 Colonoscopy completed Cony Dockery [facility] Internal [facility] 03/20/2018 08:26:29 Imaging Results Imaging Date Name Status LastModified by Organiz ation Details LastModified Time 06/11/2023 US, duplex, retroperiton eum, limited completed [email or web address] [facility] (Medical Records) [address] [place], [address], 06/17/2023 09:47:23 06/10/2024 US, kidney completed [facility] (Medical Records) [address] [place], [address], 06/11/2024 06:44:32 Procedure Notes None recorded. Medical [...] Available Not Available Not Avai lable FreeStyle Cherokee Lite kit USE TO TEST BLOOD SUGAR [...] Updated DateTime 4 177.8 cm 26.4 kg/m2 55253.9 2 g 66 /min 16 /min 96 % 96 % 98.1 [degF] 144 mm[Hg] 78 mm[Hg] Osbaldo Garcia [facility] 4 09:03:35 Date Recorded Body height Body mass index (BMI) Body weight Heart rate Oxygen saturation Oxygen saturation in Arterial blood by Pulse oximetry Systolic blood pressure Diastolic blood pressure Provider Name and Address Organization Details Last Updated DateTime 4 177.8 cm 26.3 kg/m2 16114.1 2 g 68 /min 98 % 98 % 130 mm[Hg] 80 mm[Hg] Aliza Gonzales [facility] 4 09:59:02 Date Recorded Body height Body mass index (BMI) Body weight Heart rate Oxygen saturation Oxygen saturation in Arterial blood by Pulse oximetry Systolic blood pressure Diastolic blood pressure Provider Name and Address Organization Details Last Updated DateTime 4 177.8 cm 26.3 kg/m2 16850.4 g 67 /min 98 % 98 % 130 mm[Hg] 80 mm[Hg] Batsheva Dinero [facility] 4 15:29:32 Date Recorded Body height Body mass index (BMI) Body weight Heart rate Oxygen saturation Oxygen saturation in Arterial blood by Pulse oximetry Systolic blood pressure Diastolic blood pressure Provider Name and Address Organization Details Last Updated DateTime 4 177.8 cm 26.4 kg/m2 37589 g 70 /min 98 % 98 % 130 mm[Hg] 80 mm[Hg] Aliza Gonzales [facility] 4 15:35:24 Social History Question Answer Notes LastModified by Organizat ion Details LastModified Time Tobacco Smoking Status Former Smoker Not Available [facility] 01/04/2020 03:36:24 What Was The Date Of [...] virus, quadrivalent, preservative 8 completed Not Available [facility] 11/29/2020 15:08:23 Tdap 4 completed Miky Hardy DO [address] [place] [address], [address], [facility] 12/07/2023 19:15:54 influenza, unspecified formulation 4 completed Miky Hardy DO [address] [place] [address], [address], [facility] 12/07/2023 19:16:16 Respiratory syncytial virus (RSV) vaccine, unspecified 4 completed Miky Hardy DO [address] [place] [address], [address], [facility] 12/07/2023 19:17:08 Influenza, split virus, quadrivalent, preservative 9 completed Not Available [facility] 11/29/2020 15:08:23 zoster, unspecified formulation 0 completed Not Available [facility] 11/29/2020 15:08:23 Influenza, split virus, quadrivalent, preservative 0 completed Not Available [facility] 11/29/2020 15:08:23 zoster recombinant 1 completed Not Available [facility] 11/29/2020 15:08:23 Past Encounters Encounter ID Performer Location Encounter Start Date Encounter Closed Date Diagnosis/Indication Diagnosis SNOMED-CT Code Diagnosis ICD10 Code Diagnosis Note [id number] Miky Hardy [facility] [address] [facility], [place] [address] 09/22/2017 11:57:01 09/22/2017 13:56:09 Type 2 diabetes mellitus 58386641 E11.9 stable doing opk a1c is sl elevated but still ok Essential hypertension 21254271 I10 stable taking meds with no issues Gastroesop hageal reflux disease 126717676 K21.9 quiet on prilosec 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 9 [id number] Miky Hardy [facility] [address] [facility], [place] [address] 01/14/2018 11:37:57 01/14/2018 16:34:17 Abdominal aortic aneurysm screening 530600883 Z13.6 Hepatitis C screening 41 0263671 Z11.59 Dai syndrome 583269001 Z15.09 needs referral to gi for setting up a surveillia nce program Type 2 michael betes mellitus 76255580 E11.9 stable doing ok a1c is sl elevated at 6.9 but still ok Atrial fibrillation 4943 6004 I48.91 newly discovered but pt states has had this for years currently is asymptomat ic and in NSR will refer to cardiology and keep him on low dose carvedilol and asa [id number] Miky PriyaShayna Hardy [facility] [address] [facility],[place] [address] [facility] [place] [address] 02/13/2018 10:50:45 02/13/2018 11:36:37 Atrial fibrillation 03186069 I48.91 newly discovered but pt states has had this for years currently is asymptomat ic and in NSR keep him on low dose carvedilol and asa will be seeing cardiologi st on the of this month Hepatitis C screening 41 4589827 Z11.59 will order next lab Essential hypertension 82626489 I10 stable taking meds with no issues carvedilol is well tolerated Type 2 michael betes mellitus 34260314 E11.9 stable doing ok a1c is sl elevated at 6.9 but still ok [id number] Miky PowersShayna Hayley [facility] [address] [facility], [address]e [facility] [place] [address] 04/08/2018 11:55:15 04/08/2018 12:38:54 Atrial fibrillation 51908172 I48.91 newly discovered but pt states has had this for years currently is asymptomat ic and in NSR keep him on low dose carvedilol and asa was seen by cardiologi st on the of this dec but we did not receive any Type 2 michael betes mellitus 20567708 E11.9 a1c is pending but his fbs was 191 Essential hypertension 31591801 I10 stable taking meds with no issues carvedilol is well tolerated Renal diso rder due to type 2 diabetes mellitus 554722946 E11.22 [id number] Miky Hardy [facility] [address] [facility] [address], [place] [facility] [place] [address] 07/22/2018 11:40:50 07/22/2018 12:18:10 Atrial fibrillation 50698432 I48.91 newly discovered but pt states has had this for years currently is asymptomat ic and in NSR keep him on low dose carvedilol and asa was seen by cardiologi st on the 31 of this dec but we did not receive any Hypercholesterolemia 136 16832 E78.00 will need to check in the next lab draw Type 2 michael betes mellitus 60492996 E11.9 a1c is 5.5 we will discontinu e the metformin! !!!!! Gastroesop hageal reflux disease 285958446 K21.9 quiet on prilosec Ab's s yndrome pupil 334924312 G90.2 dx by optho but i have no info had and MRI but no results on this but pt told was neg dont know of anyu follow up wi just following this Essential hypertension 45454439 I10 stable taking meds with no issues carvedilol is well tolerated Mass of chest wall 53195 4000 R22.2 has large sebaceous cyst on chest wall will need referral [id number] Miky Hardy [facility] [address] [facility] [address],[place] [address] 11/17/2018 15:37:11 11/17/2018 16:04:23 Hypercholesterolemia 64069853 E78.00 will need to check in the next lab draw Atrial fibrillation 4943 6004 I48.91 t pt states has had this for years currently is asymptomat ic and in NSR keep him on low dose carvedilol and asa will see cardiologi st Essential hypertension 64118411 I10 stable taking meds with no issues carvedilol is well tolerated Type 2 michael betes mellitus 72725421 E11.9 a1c is 5.2, was 5.5 with discontinu ed metformin! !!!!! [id number] Miky Hardy DO [facility] [address] [facility] [address],[place] [address] 03/29/2019 13:19:00 03/29/2019 14:21:03 Type 2 diabetes mellitus 89798468 E11.9 A1C stable at 5.5 with improved diet/exerc ise Dropped 30 lb over last year Essential hypertension 57832172 I10 stable taking meds with no issues carvedilol is well tolerated Atrial fibrillation 4943 6004 I48.91 pt states has had this for years currently is asymptomat ic and in NSR keep him on low dose carvedilol and asa will see cardiologi st Doing very well Hypercholesterolemia 136 67868 E78.00 HDL 44 LDL 132 Doing very well with current med [id number] Miky Hardy [facility] [address] [facility] [address],[place] [address] 08/03/2019 13:33:00 08/03/2019 13:56:20 Atrial fibrillation 28092829 I48.91 pt states has had this for years currently is asymptomat ic and in NSR keep him on low dose carvedilol and asa will see cardiologi st Doing very well Essential hypertension 04011405 I10 stable taking meds with no issues carvedilol is well tolerated Type 2 michael betes mellitus 33472186 E11.9 A1C stable at 5.5 with improved diet/exerc ise Dropped 30 lb over last year Gastroesop hageal reflux disease 302310535 K21.9 quiet on prilosec [id number] Miky Hardy [facility] [address] [facility] [address],[place] [address] 10/29/2019 09:03:20 10/29/2019 10:19:43 Atrial fibrillation 61301877 I48.91 pt states has had this for years currently is asymptomat ic and in NSR keep him on low dose carvedilol and asa will see cardiologi st Doing very well Type 2 michael betes mellitus 78171970 E11.9 A1C stable at 5.7 and 5.5 previous with improved diet/exerc ise Dropped 30 lb over last year and continues to drop a bit Essential hypertension 86626316 I10 stable taking meds with no issues carvedilol is well tolerated Hepatitis C screening 41 6420313 Z11.59 will order next lab [id number] MELVIN HIRSCH [facility] [address] [facility] [address],[place] [address] 01/21/2020 15:49:29 01/21/2020 16:23:27 Atrial fibrillation 09534183 I48.91 stable Lipoma of skin 843866739 D17.30 will do US to confirm, as patient has hx of Dai Disease [id number] Miky Hardy [facility] [address] [facility] [address],[place] [address] 05/12/2020 09:01:17 05/12/2020 09:39:45 Atrial fibrillation 83223921 I48.91 pt states has had this for years currently is asymptomat ic and in NSR keep him on low dose carvedilol and asa will see cardiologi st Doing very well Impaired f asting glycemia 982615160 R73.01 a1c is 5.5 doing great Essential hypertension 98311475 I10 stable taking meds with no issues carvedilol is well tolerated [id number] Miky Hardy [facility] [address] [facility] [address],[place] [address] 10/06/2020 08:49:22 10/06/2020 09:54:34 Atrial fibrillation 02852500 I48.91 pt states has had this for years currently is asymptomat ic and in NSR keep him on low dose carvedilol and asa will see cardiologi st Doing very well Hypercholesterolemia 136 44664 E78.00 HDL 44 LDL 132 Doing very well with current med Essential hypertension 15761749 I10 stable taking meds with no issues carvedilol is well tolerated Type 2 michael betes mellitus 08731583 E11.22 i dont feel that he has active DM anymore and that he is clearly a impaired fasting glucose. a1c is 5.8 A1C stable at 5.7 and 5.5 previous with improved diet/exerc ise Dropped 30 lb over last year and continues to drop a bit Bronchiectasis 94216219 J47.9 quiet and inactive still has occ coughing will have him follow up with dr amador Gastroesop hageal reflux disease 412242484 K21.9 quiet on prilosec Impaired f asting glycemia 695357676 R73.01 a1c is 5.8 doing great [id number] Miky Hardy [facility] [address] [facility] [address],[place] [address] 04/02/2021 08:15:22 04/02/2021 10:38:39 Atrial fibrillation 38634278 I48.91 pt states has had this for years currently is asymptomat ic and in NSR keep him on low dose carvedilol and we will have him off eliquis and put on asa given he has been stable for over 3 years will see ca rdiologist as necess Doing very well Bronchiectasis 82126092 J47.9 quiet and inactive still has occ coughing will have him follow up with dr amador Type 2 michael betes mellitus 59972001 E11.22 N18.1 i dont feel that he [...] exercise Chronic ki dney disease stage 3A 297572493 N18.[address] pineda says about whether he has improved his numbersand if we can increase [id number] Miky Hardy [facility] [address] [facility],[place] [address] 07/06/2021 09:00:17 07/06/2021 09:35:47 Atrial fibrillation 29489670 I48.91 pt states has had this for years currently is asymptomat ic and in NSRwe will change him to metoprolol daily instead of carvedilol and he will take asa instead of eliquiswil l see ca rdiologist as necess Doing very well Hypercholesterolemia 136 23052 E78.00 HDL 44 LDL 132 Doing very well with current med Essential hypertension 08491887 I10 stable taking meds with no issues Chronic ki dney disease stage 3A 170088050 N18.[address] pineda says about whether he has improved his numbershe is done seeing dr pineda due to excellent lab etc [id number] Miky Hardy [facility] [address] [facility],[place] [address] 11/30/2021 08:53:13 11/30/2021 09:28:43 Essential hypertension 30376718 I10 stable taking meds with no issues Family his tory of malignant melanoma 817491728 Z80.7 dai syndrome but he does have a lot of sun exposurewi ll refer Atrial fibrillation 4943 6004 I48.91 pt states has had this for years currently is asymptomat ic and in NSRno symptoms at all [id number] Miky Hardy DO [facility] [address] [facility],[place] [address] 03/11/2022 09:50:05 03/11/2022 10:48:46 Atrial fibrillation 42547215 I48.91 pt states has had this for years currently is asymptomat ic and in NSRno symptoms at all Essential hypertension 80662761 I10 stable taking meds with no issues Hypercholesterolemia 136 20917 E78.00 expresses interest in taking a statin again we will order rosuvastat in Impaired f asting glycemia 215585561 R73.01 a1c is 5.7 and was 5.8 doing great Bronchiectasis 83243514 J47.9 quiet and inactive still has occ coughing will have him follow up with dr amador Chronic ki dney disease stage 3A 396682704 N18.[address] pineda says about whether he has improved his numbershe is done seeing dr pineda due to excellent lab etc Type 2 michael betes mellitus 27080967 E11.22 N18.31 i dont feel that he [...] past 4 years Active or passive immunization 163679673 Z23 utd [id number] Miky Hardy, [facility] [address] [facility],[place] [address] 05/28/2022 13:49:36 05/28/2022 15:31:48 Active or passive immunization 870995243 Z23 utd Adult heal th examination 663145009 Z00.01 stop fasting stop eating once a day take the pred 40mg for 2 weeks then if ok go down to 30 and will follow up Atrial fibrillation 4943 6004 I48.91 pt states has had this for years currently is asymptomat ic and in NSRno symptoms at all Polymyalgi a rheumatica 72223337 M35.3 will start prednisone 40mg for 2 weeks and then decrease to 30 depending on how he is doing Type 2 michael betes mellitus 58331067 E11.22 N18.31 sugars went up to 300 since took some pred for the pmr so while on the prednisone we will start him on some metformin [id number] Miky Hardy [facility] [address] [facility],[place] [address] 06/26/2022 08:14:49 06/26/2022 16:31:27 Polymyalgia rheumatica 92203188 M35.3 is now starting on 20mg he will be going for 2 weeks thwn decrease to 15 for 2 weeks then 10 but will call before going lower Type 2 michael betes mellitus 24453687 E11.22 N18.31 glucose is up and he is taking metformin twice [id number] Miky Hardy [facility] [address] [facility], [place] [address] 09/09/2022 09:55:34 09/09/2022 10:46:03 Type 2 diabetes mellitus 35049075 E11.22 N18.31 glucose is up and he is taking metformin twice Essential hypertension 12471728 I10 stable taking meds with no issues Polymyalgi a rheumatica 41037638 M35.3 so he is back to 15 mg and will try 12.5 mg and he will tell me in a few weeks whether its time to go down more Atrial fibrillation 4943 6004 I48.91 pt states has had this for years currently is asymptomat ic and in NSRno symptoms at all [facility] planning 71 [id number] Z71.89 utd [id number] Miky Hardy [facility] [address] [facility],[place] [address] 12/31/2022 16:05:16 12/31/2022 16:49:15 Atrial fibrillation [id number] I48.91 pt states has had this for years currently is asymptomat ic and in NSRno symptoms at all Hypercholesterolemia 136 18521 E78.00 expresses interest in taking a statin again we will order rosuvastat in Type 2 michael betes mellitus [id number] E11.22 N18.31 glucose is up and he is taking metformin vkhhss4v 6.5 Polymyalgi a rheumatica 34063457 M35.3 had a big flare so he is back to 17.5 mg and will try 15 mg and he will tell me in a few weeks whether its time to go down more [id number] Miky Haryd, [facility] [address] [facility], [place] [address] 03/07/2023 08:40:59 03/07/2023 11:17:57 Essential hypertension 18336634 I10 stable taking meds with no issues Hypercholesterolemia 136 64273 E78.00 expresses interest in taking a statin again we will order rosuvastat in Type 2 michael betes mellitus 30150610 E11.22 N18.31 glucose is up and he is taking metformin xvgpik1i is at 7.1 was 6.5 Chronic ki dney disease stage 3A 122671334 N18.31 he is done with dr pineda kidney function is stable Dai syndrome [id number] Z15.09 a surveillia nce program Atrial fibrillation 4943 6004 I48.91 pt states has had this for years currently is asymptomat ic and in NSRno symptoms at all Polymyalgi a rheumatica 40076160 M35.3 had a big flare so he is back to 17.5 mg and will try 15 mg and he will tell me in a few weeks whether its time to go down more Adult bronchiectasis 510 66079 J47.9 quiet and no issues Renal cell carcinoma 702 965130 C64.[address] Avina in a couple months for surveillan ce [id number] Miky Hardy, [facility] [address] [facility] [address] [address] 07/11/2023 08:59:28 07/11/2023 10:11:29 Type 2 diabetes mellitus 17407945 E11.22 N18.31 glucose is up and he is taking metformin hybmxl8a is at 7.4 Essential hypertension 88394709 I10 stable taking meds with no issues Depression screening 171 795614 Z13.31 Negative Screening Positive s creening for depression on PHQ-9 (Patient Health Questionnaire 9) [id number] 90156 Z13.31 Polymyalgi a rheumatica 12124130 M35.3 here and is bad again Gastroesop hageal reflux disease 232131926 K21.9 quiet on prilosec [id number] Miky Hardy [facility] [address] [facility] [address] [address] 11/24/2023 09:48:08 11/24/2023 11:16:33 Atrial fibrillation 31691061 I48.91 pt states has had this for years currently is asymptomat ic and in NSRno symptoms at all Essential hypertension 77521858 I10 stable taking meds with no issues Type 2 michael betes mellitus 97224066 E11.22 N18.31 glucose is up now to 9.3 due to diet and less so prednisone at 5mg and he is taking metformin twicewe will increase the metformin to 1 gm bida1c was at 7.4 Cellulitis of lower leg 635317618 L03.119 [id number] Miky Hardy [facility] [address] [facility] [address] [address] 01/19/2024 15:10:52 01/19/2024 16:42:09 Essential hypertension 44492676 I10 stable taking meds with no issues Hypercholesterolemia 136 27506 E78.00 expresses interest in taking a statin again we will order rosuvastat in Type 2 michael betes mellitus 81301332 E11.22 N18.31 glucose is up now to 9.3 due to diet and less so prednisone at 10mg and he is taking metformin twicewe will increase the metformin to 1 gm bida1c was at 7.4 Polymyalgi a rheumatica 98954258 M35.3 here and is bad again has tried to go below the 10mg but he exacerbate s ]states has been trying to get lower but dropping too quickly [id number] Miky Hardy [facility] [address] [facility] [address] [address] 02/17/2024 15:15:05 02/17/2024 16:17:45 Polymyalgia rheumatica 78481141 M35.3 here and is bad again has tried to go below the 10mg but he exacerbate s ]states has been trying to get lower but dropping too quickly continue the slow taper Type 2 michael betes mellitus 31510179 E11.22 N18.31 glucose was up now to 9.3 due to diet and less so prednisone at 10mg and he is taking metformin twicewe will increase the metformin to 1 gm bida1c was at 7.4 Essential hypertension 97363340 I10 stable taking meds with no issues [id number] DO Joey [facility]go [facility] [address],[place] [address] 04/28/2024 08:08:27 04/28/2024 09:55:54 Type 2 diabetes mellitus 72080566 E11.22 N18.31 a1c is down to 7.5 was up to to 9.3 due to diet and less so prednisone at 10mg and he is taking metformin twicewe will increase the metformin to 1 gm bida1c was at 7.4 Polymyalgi a rheumatica 63232101 M35.3 here and is bad again has tried to go below the 10mg but he exacerbate s ]states has been trying to get lower but dropping too quickly continue the slow taper Gastroesop hageal reflux disease [id number] K21.9 quiet on prilosec Health Concerns Section Related Observation LastModified by Organization Detai ls LastModified Time None Recorded Concern Status LastModified by Organization Details LastModified Time None Recorded Advance Directives Directive None Recorded Payers Encounter Date Sequence Insurance Name Policy Number Policy Wu Covered Member ID Wu Member ID Guarantor Name 07/11/2023 1 [facility]: MEDICARE PPO BLUE (MEDICARE REPLACEMENT PPO) [id number] Vincent Kevin [id number] Vincent Kevin 11/24/2023 1 [facility]: MEDICARE PPO BLUE (MEDICARE REPLACEMENT PPO) [id number] Vincent Blancaka [id number] Vincent Powers [place] 01/19/2024 1 [facility]: MEDICARE PPO BLUE (MEDICARE REPLACEMENT PPO) [id number] Vincent Reyentka [id number] Vincent Blancaka 02/17/2024 1 [facility]: MEDICARE PPO BLUE (MEDICARE REPLACEMENT PPO) [id number] Vincent Blancaka [id number] Vincent Reyentka 04/28/2024 1 [facility]: MEDICARE PPO BLUE (MEDICARE REPLACEMENT PPO) [id number] Vincent Kevin [id number] Vincent Kevin Notes Date Note Type [...] up to 27 Miky Hardy DO [address] [place], [address], [facility] 07/11/2023 09:28:00 4 text/html here finally for a rechk but has not checked his lab for over a yearpoor diet he admitsstill on 5mg pred for PMRa1c is 9.3 was 7.2 a year agodoesnt chk his daily sugarsstates not watching diet and is cheating all the timeno cp no sob Miky Hardy DO [address] [place], [address], [facility] 11/24/2023 10:25:22 5 text/html MEDS- [...] and is tolerating and he is slowoly tplhygfld0f is 7.5 and is stillocc sore at times but overall is tolerable Miky Hardy DO [address] [place], [address], [facility] 04/28/2024 09:52:35
== END 2024-06-23 09:19 | disposition home or self-care (01) ==
LOC: HO.HUSH 08:42
PROVIDERS: PCP Internal Medicine; Visit Provider Urology
DX: C64.9 Malignant neoplasm of unspecified kidney, except renal pelvis (principal); N40.1 Benign prostatic hyperplasia with lower urinary tract symptoms; N13.8 Other obstructive and reflux uropathy
CPT/HCPCS: 99214; G2211

== ENCOUNTER → 2024-06-23 08:41 | Outpatient (BNVA) | payer MEDICARE, SELFPAY | PROVIDERS: PCP Internal Medicine; Visit Provider Urology | DX: C64.9 Malignant neoplasm of unspecified kidney, except renal pelvis (principal); N40.1 Benign prostatic hyperplasia with lower urinary tract symptoms; N13.8 Other obstructive and reflux uropathy | CPT/HCPCS: 99212 ==

== ENCOUNTER 2024-07-21 14:05 | Outpatient (REF) | payer MEDICARE, SELFPAY ==
--- OUTSIDE RECORDS SUMMARY | 2024-07-21 14:33 | XMS_ITS | Data Portability ---
[facility] Organization [facility] Address [address] [place] [address] Assessment Encounter Date Assessment Date Assessment LastModified by Organization Details LastModified Time 11/24/2023 11/24/2023 [id number] [place] [address] (DOCUMENTATION ENGINEER) MDM HIGH MUST MEET 2 OUT OF [...] COVERED Not available 11/24/2023 10:12:08 01/19/2024 01/19/2024 [id number] [place] [address] (DOCUMENTATION ENGINEER) MDM MODERATE MUST MEET 2 OUT OF [...] COVERED Not available 01/19/2024 15:51:21 02/17/2024 02/17/2024 [id number] [place] [address] (DOCUMENTATION ENGINEER) MDM MODERATE MUST MEET 2 OUT OF [...] COVERED Not available 02/17/2024 16:08:57 04/28/2024 04/28/2024 [address] [place] [address] (DOCUMENTATION ENGINEER) : MDM LOW MUST MEET 2 OF [...] Organization Details Last Modified Time Details Appointments FOLLOW UP 2024 01:30P M DR RAGLAND Not available Not available Not available FOLLOW UP 2024 09:45A M DR RAGLAND Not available Not available Not available Lab hemoglobi n A1c, QN, blood 2024 025 [facility], [address] [place] [address], [place], [address], 07/21/2024 14:09:09 CMP, serum or plasma 2024 025 [facility], [address] [place] [address], [place], [address], 07/21/2024 14:09:09 lipid panel, blood 2024 025 [facility] (Outpatient), [address] [place] [address], [id number], 07/21/2024 14:00:00 CMP, serum or plasma 2024 025 [facility] (Outpatient), [address] [place] [address], [id number], 07/21/2024 14:00:00 CBC 2024 025 [facility] (Outpatient), [address] [place] [address], [id number], 07/21/2024 14:00:00 HbA1c (hemoglob in A1c), blood 2023 024 [facility] (Outpatient), [address] [place] [address], [id number], 04/23/2024 14:26:49 HbA1c (hemoglob in A1c), blood 2024 025 [facility] (Outpatient), [address] [place] [address], [id number], 04/23/2024 14:26:49 Referral None recorded. Procedures None recorded. Surgeries None recorded. Imaging XR, lumbosacr al spine, 2 or 3 view 2024 025 [email or web address] [facility], [address] [place] [address], [id number], 07/21/2024 14:09:47 Medication Orders omeprazol e 20 mg capsule,d elayed release 2024 025 [facility], [address] [place] [address], [id number], 04/28/2024 09:49:45 prednison e 1 mg tablet 2023 024 [facility] [address] [place] [address], [address], 02/17/2024 16:10:14 prednison e 5 mg tablet 2023 024 [facility], [address] [place] [address], [id number], 02/17/2024 16:10:14 prednison e 5 mg tablet 2023 024 [facility], [address] [place] [address], [id number], 01/19/2024 15:51:07 prednison e 1 mg tablet 2023 024 [facility], [address] [place] [address], [address], 01/19/2024 15:51:06 metformin 1,000 mg tablet 2023 024 [facility] [address] [place] [address], [address], 11/24/2023 10:24:22 doxycycli ne hyclate 100 mg tablet 2023 024 [facility] [address] [place] [address], [address], 02/17/2024 15:28:50 Silvadene 1 % topical cream 2023 025 [facility] [address] [place] [address], [address], 07/21/2024 13:35:39 Patient TargetsNo targets recorded. Patient Instructions Encounter Date Encounter Id Patient Instructions Last Modified By Organization Details Last Modified Time 11/24/2023 [id number] pulse oximetry* Not available 11/24/2023 10:24:23 01/19/2024 [id number] polymyalgia rheumatica: care instructions Not available 01/19/2024 15:51:05 02/17/2024 [id number] high blood press ure: care instructions Not available 02/17/2024 16:09:16 learning about h igh blood pressure Not available 02/17/2024 16:09:16 04/28/2024 [id number] polymyalgia rheumatica: care instructions Not available 04/28/2024 09:49:42 learning about t ype 2 diabetes Not available 04/28/2024 09:49:42 type 2 diabetes: care instructions Not available 04/28/2024 09:49:42 gastroesophageal reflux disease (GERD): care instructions Not available 04/28/2024 09:49:42 07/21/2024 [id number] pulse oximetry* Not available 07/21/2024 13:58:38 Reason for Referral None Reported. Results Created Date Observation Date Name Description Value Unit Range Abnormal Flag Note LastModifiedBy Organization Detail LastModifiedTime 11/24/19 24 11/24/2023 pulse oxime try* Result 98% Not Available [facility] [address], [place], [address], 11/24/2023 08:03:15 04/23/19 25 04/23/2024 HbA1c (hemo globi n A1c), blood A1C 7.5 abnormal Not Available [facility] (Outpatient) [address] [place], [address], 04/23/2024 14:22:48 07/22/1907/21/2024 pulse oxime try* Result 98 Not Available [facility] [address], [place], [address], 07/20/2024 10:19:27 06/11/19 25 06/10/2024 Mavis VICTORIA ation record ed. [facility] (Medical Records) [address], [place], [address], 07/21/2024 13:52:30 Result Notes None recorded. 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 Not Available [facility] 0 12:50:42 Chronic kidney disease stage 3A 467065303 Active 2021 Miky Ragland, DO [address] [place] [address], [place], [address], [facility] [place] 2 10:22:08 Type 2 diabetes mellitus 14520945 Active 2022 Aliza ahn [facility] 4 08:25:57 COVID-19 430476156 Active 2022 Aliza ahn [facility] 4 08:26:04 Lipoma of chest wall 074987370 Active 2022 Aliza ahn [facility] 4 08:25:57 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 Aliza ahn [facility] 4 08:25:57 Cerebral hemorrha ge 615761344 Active 2017 Aliza ahn [facility] 4 08:26:04 Gastroes ophageal reflux disease 541411026 Active 2017 Aliza ahn [facility] 4 08:25:57 Hypercho lesterol emia 15224059 Active 2017 Aliza ahn [facility] 4 08:25:57 Essentia l hyperten enedina 73121145 Active 2017 Aliza ahn [facility] 4 08:25:57 Osteoart hritis of knee 828813537 Active 2017 [facility] 08:25:57 Polyp of colon 84256567 Active 2017 hyperpla stic [facility] 4 08:26:04 Impaired fasting glycemia 204830325 Completed 201702/13/2018 Miky Ragland, [address] [place] [address], [address], [facility] [place] 4 10:11:54 Family history of diabetes mellitus type 2 286425749 Completed 201702/13/2018 Miky Ragland DO [address] [place] [address], [address], [facility] [place] 8 11:20:39 Insomnia 853127634 Active 2017 [facility] 4 08:25:57 Renal cell carcinom a 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 2017 R [facility] 4 08:25:57 Polymyal mulu rheumati ca 14525319 Active 2017 [facility] 4 08:25:57 Type 2 diabetes mellitus 90195356 Completed 201710/29/2019 Removal Reason: now in pre diabetic state Aliza ahn [facility] 4 08:25:57 Adult bronchie ctasis 72749764 Active 2023 Aliza ahn [facility] 4 08:26:04 Cellulit is of lower leg 862366303 Active 2023 [facility] 4 08:26:04 Notes:Some problems listed i n Document: #[id number] could not be added to this patient's chart. Please review this document and add these problems to the patient's chart manually as needed. Problem Notes None recorded. Procedures Surgical History Date Name Laterality Status Provider Name and Address Organization Details Recorded Time 03/06/20 25 Colonoscopy completed Miky Ragland, DO [address] [place], [address], [facility] 05/06/2024 18:37:55 09/06/19 20 Colonoscopy completed Miky Ragland, DO [address] [place], [address], [facility] 09/10/2019 14:05:05 03/19/19 19 Colonoscopy completed Conymariella Dockery [facility] 03/20/2018 08:26:29 Imaging Results Imaging Date Name Status LastModified by Organiz ation Details LastModified Time 06/10/2024 US, kidney completed [facility] (Medical Records) [address] [place] [address], [address], 07/21/2024 13:52:30 Procedure Notes None recorded. Medical Equipment None Reported. Allergies No known drug allergies Medications Name Sig Start Date Stop Date Status Note LastModified by Organization Details LastModified Time silver sulfadiazin e 1 % topical cream APPLY A 1/16 INCH (1.5 MM) THICK LAYER TO ENTIRE BURN AREA BY TOPICAL ROUTE 2 TIMES PER DAY 07/21 completed Not Available Not Available Not Available metformin 500 mg tablet TAKE 1 [...] prednisone 1 mg tablet TAKE 4 TABLETS BY MOUTH EVERY DAY FOR 30 DAYS active Not Available Not Available No t [...] TAKE 1 TABLET BY MOUTH EVERY DAY 2024 active Not Available Not Available Not Avai lable multivitami n 07/06 completed Not Available Not Available Not Available peg 3350-electr olytes 236 gram-22.74 gram-6.74 gram-5.86 gram solution USE DIRECTED FOR 1 DAY 07/10 completed Not Available Not Available Not Available FreeStyle Lite Strips USE TO TEST BLOOD SUGAR LEVEL DAILY. active Not Available Not Available No t Available FreeStyle [place] Lite kit USE TO TEST BLOOD SUGAR [...] Available Not Available Not Available Fluzone High-Dose 2018- (PF) 180 mcg/0.5 mL intramuscul ar syringe [...] Updated DateTime 4 177.8 cm 26.3 kg/m2 16393.1 2 g 68 /min 98 % 98 % 130 mm[Hg] 80 mm[Hg] [facility] 4 09:59:02 Date Recorded Body height Body mass index (BMI) Body weight Heart rate Oxygen saturation Oxygen saturation in Arterial blood by Pulse oximetry Systolic blood pressure Diastolic blood pressure Provider Name and Address Organization Details Last Updated DateTime 4 177.8 cm 26.3 kg/m2 03271.4 g 67 /min 98 % 98 % 130 mm[Hg] 80 mm[Hg] Batsheva Ferraromond [facility] 4 15:29:32 Date Recorded Body height Body mass index (BMI) Body weight Heart rate Oxygen saturation Oxygen saturation in Arterial blood by Pulse oximetry Systolic blood pressure Diastolic blood pressure Provider Name and Address Organization Details Last Updated DateTime 4 177.8 cm 26.4 kg/m2 81979 g 70 /min 98 % 98 % 130 mm[Hg] 80 mm[Hg] Aliza Gonzales [facility] 4 15:35:24 Date Recorded Body height Body mass index (BMI) Body weight Heart rate Oxygen saturation Oxygen saturation in Arterial blood by Pulse oximetry Systolic blood pressure Diastolic blood pressure Provider Name and Address Organization Details Last Updated DateTime 5 177.8 cm 26.4 kg/m2 61665 g 70 /min 98 % 98 % 142 mm[Hg] 84 mm[Hg] Sandy Jus [facility] 5 13:39:41 Social History Question Answer Notes LastModified by Organizat ion Details LastModified Time Tobacco Smoking Status Former Smoker Not Available [facility] 01/04/2020 03:36:24 What Was The Date Of Your Most Recent Tobacco Screening? 07/21/2024 [email or web address] Information not available 07/21/2024 Sex: Unknown Functional Status Question Answer Note LastModified by Organization D etails LastModified Time Do you or have you ever used any other forms of tobacco or nicotine? No [email or web address] Information not available 03/11/2022 Mental Status None recorded. Family History Nothing Reported. Medical History No medical history recorded. Immunizations Vaccine Type Date Status Note Provider Nam e and Address Organization Details Recorded Time Influenza, split virus, quadrivalent, preservative 8 completed Not Available [facility] 11/29/2020 15:08:23 Tdap 4 completed Miky Ragland DO [address] [place] [address], [address], [facility] 12/07/2023 19:15:54 influenza, unspecified formulation 4 completed Miky Ragland DO [address] [place] [address], [address], [facility] 12/07/2023 19:16:16 Respiratory syncytial virus (RSV) vaccine, unspecified 4 completed Miky Ragland DO [address] [place], [address], [facility] 12/07/2023 19:17:08 Influenza, split virus, quadrivalent, preservative 9 completed Not Available [facility] 11/29/2020 15:08:23 zoster, unspecified formulation 0 completed Not Available [facility] 11/29/2020 15:08:23 Influenza, split virus, quadrivalent, preservative 0 completed Not Available [facility] 11/29/2020 15:08:23 zoster recombinant 1 completed Not Available [facility] 11/29/2020 15:08:23 Past Encounters Encounter ID Performer Location Encounter Start Date Encounter Closed Date Diagnosis/Indication Diagnosis SNOMED-CT Code Diagnosis ICD10 Code Diagnosis Note [id number] Miky Ragland DO [facility] [address], [place] [address] 09/22/2017 11:57:01 09/22/2017 13:56:09 Type 2 diabetes mellitus 13894928 E11.9 stable doing opk a1c is sl elevated but still ok Essential hypertension 39301885 I10 stable taking meds with no issues Gastroesop hageal reflux disease 989168261 K21.9 quiet on prilosec 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 9 [id number] Miky Ragland DO [facility] [address],[place] [address] 01/14/2018 11:37:57 01/14/2018 16:34:17 Abdominal aortic aneurysm screening 329525216 Z13.6 Hepatitis C screening 41 0254240 Z11.59 Gonzales syndrome 434393606 Z15.09 needs referral to gi for setting up a surveillia nce program Type 2 michael betes mellitus 83119642 E11.9 stable doing ok a1c is sl elevated at 6.9 but still ok Atrial fibrillation 4943 6004 I48.91 newly discovered but pt states has had this for years currently is asymptomat ic and in NSR will refer to cardiology and keep him on low dose carvedilol and asa [id number] Miky Ragland [facility] [address],[place] [address] 02/13/2018 10:50:45 02/13/2018 11:36:37 Atrial fibrillation 23617762 I48.91 newly discovered but pt states has had this for years currently is asymptomat ic and in NSR keep him on low dose carvedilol and asa will be seeing cardiologi st on the of this month Hepatitis C screening 41 5089019 Z11.59 will order next lab Essential hypertension 92909529 I10 stable taking meds with no issues carvedilol is well tolerated Type 2 michael betes mellitus 06544723 E11.9 stable doing ok a1c is sl elevated at 6.9 but still ok [id number] Miky Ragland [facility] [address], [address] [place] [address] 04/08/2018 11:55:15 04/08/2018 12:38:54 Atrial fibrillation 30417752 I48.91 newly discovered but pt states has had this for years currently is asymptomat ic and in NSR keep him on low dose carvedilol and asa was seen by cardiologi st on the of this dec but we did not receive any Type 2 michael betes mellitus 81228132 E11.9 a1c is pending but his fbs was 191 Essential hypertension 58600931 I10 stable taking meds with no issues carvedilol is well tolerated Renal diso rder due to type 2 diabetes mellitus 087318928 E11.22 Miky Ragland [facility] [address] [place] [address] 07/22/2018 11:40:50 07/22/2018 12:18:10 Atrial fibrillation 49721964 I48.91 newly discovered but pt states has had this for years currently is asymptomat ic and in NSR keep him on low dose carvedilol and asa was seen by cardiologi st on the of this dec but we did not receive any Hypercholesterolemia 136 06161 E78.00 will need to check in the next lab draw Type 2 michael betes mellitus 08782457 E11.9 a1c is 5.5 we will discontinu e the metformin! !!!!! 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.2 dx by [employer] but i have no info had and MRI but no results on this but pt told was neg dont know of anyu follow up wi just following this Essential hypertension 54068883 I10 stable taking meds with no issues carvedilol is well tolerated Mass of chest wall 29047 4000 R22.2 has large sebaceous cyst on chest wall will need referral [id number] Miyk Ragland [facility] [address] [address] 11/17/2018 15:37:11 11/17/2018 16:04:23 Hypercholesterolemia 67285177 E78.00 will need to check in the next lab draw Atrial fibrillation 4943 6004 I48.91 t pt states has had this for years currently is asymptomat ic and in NSR keep him on low dose carvedilol and asa will see cardiologi st Essential hypertension 71294914 I10 stable taking meds with no issues carvedilol is well tolerated Type 2 michael betes mellitus 54592663 E11.9 a1c is 5.2, was 5.5 with discontinu ed metformin! !!!!! [id number] Miky Ragland [facility] [address],[place] [address] 03/29/2019 13:19:00 03/29/2019 14:21:03 Type 2 diabetes mellitus 27529547 E11.9 A1C stable at 5.5 with improved diet/exerc ise Dropped 30 lb over last year Essential hypertension 10041760 I10 stable taking meds with no issues carvedilol is well tolerated Atrial fibrillation 4943 6004 I48.91 pt states has had this for years currently is asymptomat ic and in NSR keep him on low dose carvedilol and asa will see cardiologi st Doing very well Hypercholesterolemia 136 13072 E78.00 HDL 44 LDL 132 Doing very well with current med [id number] Miky Ragland [facility] [address] [facility] [address] [address] 08/03/2019 13:33:00 08/03/2019 13:56:20 Atrial fibrillation 10097915 I48.91 pt states has had this for years currently is asymptomat ic and in NSR keep him on low dose carvedilol and asa will see cardiologi st Doing very well Essential hypertension 33713675 I10 stable taking meds with no issues carvedilol is well tolerated Type 2 michael betes mellitus 01693129 E11.9 A1C stable at 5.5 with improved diet/exerc ise Dropped 30 lb over last year Gastroesop hageal reflux disease 991605358 K21.9 quiet on prilosec [id number] Miky Ragland [facility] [address],[place] [address] 10/29/2019 09:03:20 10/29/2019 10:19:43 Atrial fibrillation 86817012 I48.91 pt states has had this for years currently is asymptomat ic and in NSR keep him on low dose carvedilol and asa will see cardiologi st Doing very well Type 2 michael betes mellitus 99963183 E11.9 A1C stable at 5.7 and 5.5 previous with improved diet/exerc ise Dropped 30 lb over last year and continues to drop a bit Essential hypertension 60852625 I10 stable taking meds with no issues carvedilol is well tolerated Hepatitis C screening 41 6194469 Z11.59 will order next lab [id number] Miky Ragland [facility] [address] [facility] [address],[place] [address] 01/21/2020 15:49:29 01/21/2020 16:23:27 Atrial fibrillation 95074016 I48.91 stable Lipoma of skin 295355223 D17.30 will do US to confirm, as patient has hx of Gonzales Disease [id number] Miky Ragland [facility] [address] [facility] [address] [address] 05/12/2020 09:01:17 05/12/2020 09:39:45 Atrial fibrillation 66568478 I48.91 pt states has had this for years currently is asymptomat ic and in NSR keep him on low dose carvedilol and asa will see cardiologi st Doing very well Impaired f asting glycemia 703690723 R73.01 a1c is 5.5 doing great Essential hypertension 05029042 I10 stable taking meds with no issues carvedilol is well tolerated [id number] Miky Ragland [facility] [address] [facility] [address] [address] 10/06/2020 08:49:22 10/06/2020 09:54:34 Atrial fibrillation 98272636 I48.91 pt states has had this for years currently is asymptomat ic and in NSR keep him on low dose carvedilol and asa will see cardiologi st Doing very well Hypercholesterolemia 136 32851 E78.00 HDL 44 LDL 132 Doing very well with current med Essential hypertension 02306656 I10 stable taking meds with no issues carvedilol is well tolerated Type 2 michael betes mellitus 91641448 E11.22 i dont feel that he has active DM anymore and that he is clearly a impaired fasting glucose. a1c is 5.8 A1C stable at 5.7 and 5.5 previous with improved diet/exerc ise Dropped 30 lb over last year and continues to drop a bit Bronchiectasis 00427377 J47.9 quiet and inactive still has occ coughing will have him follow up with dr amador Gastroesop hageal reflux disease 495149437 K21.9 quiet on prilosec Impaired f asting glycemia 651656682 R73.01 a1c is 5.8 doing great [id number] Miky Ragland [facility] [address] [facility] [address],[place] [address] 04/02/2021 08:15:22 04/02/2021 10:38:39 Atrial fibrillation 76995262 I48.91 pt states has had this for years currently is asymptomat ic and in NSR keep him on low dose carvedilol and we will have him off eliquis and put on asa given he has been stable for over 3 years will see ca rdiologist as necess Doing very well Bronchiectasis 87542584 J47.9 quiet and inactive still has occ coughing will have him follow up with dr amador Type 2 michael betes mellitus 31086200 E11.22 N18.1 i dont feel that he [...] exercise Chronic ki dney disease stage 3A 868037483 N18.[address] pineda says about whether he has improved his numbersand if we can increase [id number] Miky Ragland [facility] [address],[place] [address] 07/06/2021 09:00:17 07/06/2021 09:35:47 Atrial fibrillation 27736580 I48.91 pt states has had this for years currently is asymptomat ic and in NSRwe will change him to metoprolol daily instead of carvedilol and he will take asa instead of eliquiswil l see ca rdiologist as necess Doing very well Hypercholesterolemia 136 40238 E78.00 HDL 44 LDL 132 Doing very well with current med Essential hypertension 05554688 I10 stable taking meds with no issues Chronic ki dney disease stage 3A 477342121 N18.[address] pineda says about whether he has improved his numbershe is done seeing dr pineda due to excellent lab etc [id number] Miky Ragland [facility] [address],[place] [address] 11/30/2021 08:53:13 11/30/2021 09:28:43 Essential hypertension 95851669 I10 stable taking meds with no issues Family his tory of malignant melanoma 881377238 Z80.7 gonzales syndrome but he does have a lot of sun exposurewi ll refer Atrial fibrillation 4943 6004 I48.91 pt states has had this for years currently is asymptomat ic and in NSRno symptoms at all [id number] Miky Ragland [facility] Internal Medicine [address] [facility], [place] [address] 03/11/2022 09:50:05 03/11/2022 10:48:46 Atrial fibrillation 15140697 I48.91 pt states has had this for years currently is asymptomat ic and in NSRno symptoms at all Essential hypertension 93822144 I10 stable taking meds with no issues Hypercholesterolemia 136 86326 E78.00 expresses interest in taking a statin again we will order rosuvastat in Impaired f asting glycemia 537320302 R73.01 a1c is 5.7 and was 5.8 doing great Bronchiectasis 92611917 J47.9 quiet and inactive still has occ coughing will have him follow up with dr amador Chronic ki dney disease stage 3A 855897778 N18.[address] pindea says about whether he has improved his numbershe is done seeing dr pineda due to excellent lab etc Type 2 michael betes mellitus 47755654 E11.22 N18.31 i dont feel that he has active DM anymore and that he is clearly a impaired fasting glucose. a1c is 5.8 again and he feels he should be able to do better i told him he should be happy A1C stable at 5.7 was 5.8 and was 5.8 and 5.7 and 5.5 previous with improved diet/exerc isehas kept his wgt off for the past 4 years Active or passive immunization 551494513 Z23 utd [id number] Miky Ragland [facility] Internal Medicine [address] [facility] on [address] [address] 05/28/2022 13:49:36 05/28/2022 15:31:48 Active or passive immunization 922572647 Z23 utd Adult heal th examination 675972325 Z00.01 stop fasting stop eating once a day take the pred 40mg for 2 weeks then if ok go down to 30 and will follow up Atrial fibrillation 4943 6004 I48.91 pt states has had this for years currently is asymptomat ic and in NSRno symptoms at all Polymyalgi a rheumatica 98443513 M35.3 will start prednisone 40mg for 2 weeks and then decrease to 30 depending on how he is doing Type 2 michael betes mellitus 34245850 E11.22 N18.31 sugars went up to 300 since took some pred for the pmr so while on the prednisone we will start him on some metformin [id number] Miky Ragland [facility] Internal Medicine [address] [facility] on [email or web address] [address] 06/26/2022 08:14:49 06/26/2022 16:31:27 Polymyalgia rheumatica 64667069 M35.3 is now starting on 20mg he will be going for 2 weeks thwn decrease to 15 for 2 weeks then 10 but will call before going lower Type 2 michael betes mellitus 66378379 E11.22 N18.31 glucose is up and he is taking metformin twice [id number] Miky Ragland [facility] Internal Medicine [address] [facility],[email or web address] [address] 09/09/2022 09:55:34 09/09/2022 10:46:03 Type 2 diabetes mellitus 29349595 E11.22 N18.31 glucose is up and he is taking metformin twice Essential hypertension 10182430 I10 stable taking meds with no issues Polymyalgi a rheumatica 14125599 M35.3 so he is back to 15 mg and will try 12.5 mg and he will tell me in a few weeks whether its time to go down more Atrial fibrillation 4943 6004 I48.91 pt states has had this for years currently is asymptomat ic and in NSRno symptoms at all Advance care planning 71 5615998 Z71.89 utd [id number] Miky Ragland [facility] Internal Medicine [address] [facility] [address],[email or web address] [address] 12/31/2022 16:05:16 12/31/2022 16:49:15 Atrial fibrillation 68584243 I48.91 pt states has had this for years currently is asymptomat ic and in NSRno symptoms at all Hypercholesterolemia 136 89063 E78.00 expresses interest in taking a statin again we will order rosuvastat in Type 2 michael betes mellitus 80346204 E11.22 N18.31 glucose is up and he is taking metformin [id number] 6.5 Polymyalgi a rheumatica 74479404 M35.3 had a big flare so he is back to 17.5 mg and will try 15 mg and he will tell me in a few weeks whether its time to go down more [id number] Miky Ragland [facility] Internal Medicine [address] [facility] [address] [address] 03/07/2023 08:40:59 03/07/2023 11:17:57 Essential hypertension 52333275 I10 stable taking meds with no issues Hypercholesterolemia 136 73232 E78.00 expresses interest in taking a statin again we will order rosuvastat in Type 2 michael betes mellitus 71379916 E11.22 N18.31 glucose is up and he is taking metformin [id number] is at 7.1 was 6.5 Chronic ki dney disease stage 3A 114608828 N18.31 he is done with dr pineda kidney function is stable 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 sde program Atrial fibrillation 4943 6004 I48.91 pt states has had this for years currently is asymptomat ic and in NSRno symptoms at all Polymyalgi a rheumatica 42448484 M35.3 had a big flare so he is back to 17.5 mg and will try 15 mg and he will tell me in a few weeks whether its time to go down more Adult bronchiectasis 510 36076 J47.9 quiet and no issues Renal cell carcinoma 702 355181 C64.[address] Avina in a couple months for surveillan ce [id number] Miky Ragland [facility] Internal Medicine [address] [facility] [address],[place] [address] 07/11/2023 08:59:28 07/11/2023 10:11:29 Type 2 diabetes mellitus 60796095 E11.22 N18.31 glucose is up and he is taking metformin [id number] is at 7.4 Essential hypertension 68351088 I10 stable taking meds with no issues Depression screening 171 980141 Z13.31 Negative Screening Positive s creening for depression on PHQ-9 (Patient Health Questionnaire 9) 3743190125 45432 Z13.31 Polymyalgi a rheumatica 74357610 M35.3 here and is bad again Gastroesop hageal reflux disease 745453873 K21.[address] [facility] [id number] Miky Ragland [facility] Internal Medicine [address] [facility], [address] [place] [address] 11/24/2023 09:48:08 11/24/2023 11:16:33 Atrial fibrillation 04190468 I48.91 pt states has had this for years currently is asymptomat ic and in NSRno symptoms at all Essential hypertension 08642744 I10 stable taking meds with no issues Type 2 michael betes mellitus 86153665 E11.22 N18.31 glucose is up now to 9.3 due to diet and less so prednisone at 5mg and he is taking metformin twicewe will increase the metformin to 1 gm bida1c was at 7.4 Cellulitis of lower leg 206871544 L03.119 [id number] Miky Ragland [facility] Internal Medicine [address] [facility], [employer] [place], [place] 7 01/19/2024 15:10:52 01/19/2024 16:42:09 Essential hypertension 81387106 I10 stable taking meds with no issues Hypercholesterolemia 136 07331 E78.00 expresses interest in taking a statin again we will order rosuvastat in Type 2 michael betes mellitus 61487273 E11.22 N18.31 glucose is up now to 9.3 due to diet and less so prednisone at 10mg and he is taking metformin twicewe will increase the metformin to 1 gm bida1c was at 7.4 Polymyalgi a rheumatica 16632040 M35.3 here and is bad again has tried to go below the 10mg but he exacerbate s ]states has been trying to get lower but dropping too quickly [id number] Miky Ragland [facility] Internal Medicine [address] [facility],[address] [employer] GroupLEN[facility] HILL HOSPITALUser[place] [address] 02/17/2024 15:15:05 02/17/2024 16:17:45 Polymyalgia rheumatica 14153523 M35.3 here and is bad again has tried to go below the 10mg but he exacerbate s ]states has been trying to get lower but dropping too quickly continue the slow taper Type 2 michael betes mellitus 63220888 E11.22 N18.31 glucose was up now to 9.3 due to diet and less so prednisone at 10mg and he is taking metformin twicewe will increase the metformin to 1 gm bida1c was at 7.4 Essential hypertension 58641954 I10 stable taking meds with no issues [id number] Miky Ragland [facility] Internal Medicine [address] [facility],[place] [address] 04/28/2024 08:08:27 04/28/2024 09:55:54 Type 2 diabetes mellitus 83202152 E11.22 N18.31 a1c is down to 7.5 was up to to 9.3 due to diet and less so prednisone at 10mg and he is taking metformin twicewe will increase the metformin to 1 gm bida1c was at 7.4 Polymyalgi a rheumatica 86517778 M35.3 here and is bad again has tried to go below the 10mg but he exacerbate s ]states has been trying to get lower but dropping too quickly continue the slow taper Gastroesop hageal reflux disease 372548985 K21.9 quiet on located within [facility] [id number] Miky Ragland [facility] Internal Medicine [address] [facility],[place] [address] 07/21/2024 13:27:17 07/21/2024 14:09:47 Depression screening 514480244 Z13.31 Negative Screening Atrial fibrillation 4943 6004 I48.91 pt states has had this for years currently is asymptomat ic and in NSRno symptoms at all Essential hypertension 52910564 I10 stable taking meds with no issues Hypercholesterolemia 136 44308 E78.00 expresses interest in taking a statin again we will order rosuvastat in Type 2 michael betes mellitus 98960879 E11.22 N18.31 a1c is pending was down to 7.5 was up to to 9.3 due to diet and less so prednisone at 10mg and he is taking metformin twicewe will increase the metformin to 1 gm bida1c was at 7.4 Lumbar radiculopathy 128 087596 M54.16 Health Concerns Section Related Observation LastModified by Organization Detai ls LastModified Time None Recorded Concern Status LastModified by Organization Details LastModified Time None Recorded Advance Directives Directive None Recorded Payers Encounter Date Sequence Insurance Name Policy Number Policy Wu Covered Member ID Wu Member ID Guarantor Name 11/24/2023 1 [place]MED[place] PPO) [id number] Vincent A Mientka [id number] Vincent A Mientka 01/19/2024 1 [place] PPO) [id number] Vincent A Mientka [id number] Vincent A Mientka 02/17/2024 1 [place] PPO) [id number] Vincent A Mientka [id number] Vincent A Mientka 04/28/2024 1 [place] PPO) [id number] Vincent A Mientka [id number] Vincent A Mientka 07/21/2024 1 [place] PPO) [id number] Vincent A Mientka [id number] Vincent Priya Mientka Notes Date Note Type Note Provider Name and Address Organization Details Recorded Time 11/24/19 24 text/htm l here finally for a rechk but has not checked his lab for over a yearpoor diet he admitsstill on 5mg pred for PMRa1c is 9.3 was 7.2 a year agodoesnt k his daily sugarsstates not watching diet and is cheating all the timeno cp no sob Miky Ragland, DO [address] [facility], [place], [address], [facility] 11/24/2023 10:25:22 04/28/19 25 text/htm l MEDS- complaint, no ADRsDIET- non compliantcomplaint with [...] and is tolerating and he is slowoly [id number] is 7.5 and is stillocc sore at times but overall is tolerable Miky Ragland DO [address] [place], [address], [facility] Internal Medicine 04/28/2024 09:52:35 07/22/19 25 text/htm l Care Management - Atrial FibrillationReported bypatient.Medications:comp liant with medication Prior Imaging:echocardiogram; recent ECG Associated Symptoms:no dizziness; no chest pain; no easy bruisability; no rapid heart rateCare Management - DiabetesReported bypatient.Self Care:seeing eye doctor yearly for dilated eye exam; checking feet regularly; normal range of home blood sugars (in the low 100s); no side effects from medications Associated Symptoms:symptoms are usually well controlled; no fatigue; no dizziness; no excessive sweating; no headaches; no confusion; no increased thirst; no increased appetite; no increased urination; no blurred vision; no numbness of feet; no calluses on feetCare Management - HyperlipidemiaReported bypatient.Control:usually well controlled; improving; at goal Complications:no coronary artery disease; no heart attack; no cardiovascular disease; no pancreatitis; no strokeCare Management - HypertensionReported bypatient.Self Care:not under emotional stress Severity:symptoms are improving; does not interfere with daily activities Associated Symptoms:no dizziness; no lightheadedness; no chest pain; no shortness of breath; no palpitations; no edema; no calf muscle cramps; no blurred vision; no confusion; no headaches; no fatigue here for rechk relates has been having worsening back painand getting so bad he wakes up at nightbm relieves some of the discomfort Miky Ragland DO [address] [place], [address], [facility] Internal Medicine 07/21/2024 14:04:07
--- OUTSIDE RECORDS SUMMARY | 2024-07-21 14:33 | XMS_ITS | Encounter Summary ---
Author Organization [facility], Address [address] [place] [address] Phone Care Team Providers Care Sap Portal Architect Name Role Phone Miky Hardy DO Primary Care Provider [phone] Encounter Details Date Type Department Care Team (Late st Contact Info) Description 06/28/2022 Documentation Only [facility], - [place] Dr Violet ZARAGO[address] [facility] [address] [place] [phone] Irasema Fagan MD Social History Tobacco Use [...] on filedocumented in this encounter Care Teams Sap Portal Architect Relationship Specialty Start Date End Date Miky Hardy DO [address] [facility] [place] [address] PCP - General 01/05/19 documented as of this encounter
--- OUTSIDE RECORDS SUMMARY | 2024-07-21 14:33 | XMS_ITS | Continuity of Care Document ---
Author Organization [place] - [facility], [facility] Address [address] [facility] [place] [address] Assessment No assessment recorded. Plan of Treatment Reminders Order Date Submit Date Provider Last Modified By Organization Details Last Modified Time Details Appointments FOLLOW UP 2024 01:30P M DR RAGLAND Not available Not available Not available FOLLOW UP 2024 09:45A M DR RAGLAND Not available Not available Not available Lab hemoglobi n A1c, QN, blood 2024 025 [facility], [address] [place] [address], [address], 07/21/2024 14:09:09 CMP, serum or plasma 2024 025 [facility], [address] [place] [address], [id number], 07/21/2024 14:09:09 lipid panel, blood 2024 025 [facility] (Out[facility]), [address] [place] [address], [address], 07/21/2024 14:00:00 CMP, serum or plasma 2024 025 [facility] (Outpatient), [address] [place] [address], [address], 07/21/2024 14:00:00 CBC 2024 025 [facility] (Outpatient), [address] [place] [address], [address], 07/21/2024 14:00:00 Referral None recorded. Procedures None recorded. Surgeries None recorded. Imaging XR, lumbosacr al spine, 2 or 3 view 2024 025 [email or web address] [facility], [address], [place], [address], 07/21/2024 14:09:47 Medication Orders None recorded. Patient TargetsNo targets recorded. Patient Instructions Encounter Date Encounter Id Patient Instructions Last Modified By Organization Details Last Modified Time 07/21/2024 [id number] pulse oximetry* Not available 07/21/2024 13:58:38 Reason for Referral None Reported. Results Created Date Observation Date Name Description Value Unit Range Abnormal Flag Note LastModifiedBy Organization Detail LastModifiedTime 07/22/1907/21/2024 pulse oxime try* Result 98 Not Available [facility] Internal [facility] [address] [facility] [address], [place], [address], 07/20/2024 10:19:27 Result Notes None recorded. 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 4 08:25:57 Gonzales syndrome 438765068 Active 2017 [facility] 4 08:25:57 Cerebral hemorrha ge 128319419 Active 2017 [facility] 4 08:26:04 Gastroes ophageal reflux disease 694100391 Active 2017 [facility] 4 08:25:57 Hypercho lesterol emia 13143218 Active 2017 [facility] 4 08:25:57 Essentia l hyperten enedina 73893191 Active 2017 [facility] 4 08:25:57 Osteoart hritis of knee 976060273 Active 2017 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 4 08:26:04 Impaired fasting glycemia 724807972 Completed 201702/13/2018 Miky Ragland, DO [address] [place] [address], [address], [facility] 4 10:11:54 Family history of diabetes mellitus type 2 188896903 Completed 201702/13/2018 Miky Ragland, DO [address] [place] [address], [address], [facility] 8 11:20:39 Insomnia 526925880 Active 2017 [facility] 4 08:25:57 Renal cell carcinom a 272728450 Active 2017 R [facility] 4 08:25:57 Polymyal mulu rheumati ca 83149803 Active 2017 Aliza ahn [facility] 4 08:25:57 Type 2 diabetes mellitus 55348498 Completed 201710/29/2019 Removal Reason: now in pre diabetic state Aliza ahn [facility] 4 08:25:57 Adult bronchie ctasis 61039258 Active 2023 Aliza ahn [facility] 4 08:26:04 Cellulit is of lower leg 815042380 Active 2023 Aliza ahn [facility] 4 08:26:04 Notes:Some problems listed i n Document: #[id number] could not be added to this patient's chart. Please review this document and add these problems to the patient's chart manually as needed. Problem Notes None recorded. Procedures Surgical History Date Name Laterality Status Provider Name and Address Organization Details Recorded Time 05/07/19 25 Colonoscopy completed Miky Ragland DO [address] [place] [address], [address], [facility] 05/06/2024 18:37:55 09/06/19 20 Colonoscopy completed Miky Ragland DO [address] [place] [address], [address], [facility] 09/10/2019 14:05:05 03/19/19 19 Colonoscopy completed Cony Dockery [facility] 03/20/2018 08:26:29 Imaging Results None recorded. Procedure Notes None recorded. Medical Equipment None [...] Available Not Available No t Available [employer] [place] Lite kit USE TO TEST BLOOD SUGAR [...] Updated DateTime 5 177.8 cm 26.4 kg/m2 47563 g 70 /min 98 % 98 % 142 mm[Hg] 84 mm[Hg] Sandy Luu [facility] 5 13:39:41 Social History Question Answer Notes LastModified by Organizat ion Details LastModified Time Tobacco Smoking Status Former Smoker Not Available [facility] 01/04/2020 03:36:24 What Was The Date [...] virus, quadrivalent, preservative 8 completed Not Available [facility] 11/29/2020 15:08:23 Tdap 4 completed Miky Ragland DO [address] [place] [address], [address], [facility] 12/07/2023 19:15:54 influenza, unspecified formulation 4 completed Miky Ragland DO [address] [place] [address], [address], [facility] 12/07/2023 19:16:16 Respiratory syncytial virus (RSV) vaccine, unspecified 4 completed Miky Ragland DO [address] [place] [address], [address], [facility] 12/07/2023 19:17:08 Influenza, split virus, quadrivalent, preservative 9 completed Not Available [facility] 11/29/2020 15:08:23 zoster, unspecified formulation 0 completed Not Available [facility] 11/29/2020 15:08:23 Influenza, split virus, quadrivalent, preservative 0 completed Not Available [facility] 11/29/2020 15:08:23 zoster recombinant 1 completed Not Available [facility] 11/29/2020 15:08:23 Past Encounters Encounter ID Performer Location Encounter Start Date Encounter Closed Date Diagnosis/Indication Diagnosis SNOMED-CT Code Diagnosis ICD10 Code Diagnosis Note [id number] DO Joey Ngo Internal [facility] [address],[place] [address] 07/21/2024 13:27:17 07/21/2024 14:09:47 Depression screening 271064411 Z13.31 Negative Screening Atrial fibrillation 4943 6004 I48.91 pt states has had this for years currently is asymptomat ic and in NSRno symptoms at all Essential hypertension 48481603 I10 stable taking meds with no issues Hypercholesterolemia 136 60178 E78.00 expresses interest in taking a statin again we will order rosuvastat in Type 2 michael betes mellitus 30392147 E11.22 N18.31 a1c is pending was down to 7.5 was up to to 9.3 due to diet and less so prednisone at 10mg and he is taking metformin twicewe will increase the metformin to 1 gm bida1c was at 7.4 Lumbar radiculopathy 128 739906 M54.16 Health Concerns Section Related Observation LastModified by Organization Detai ls LastModified Time None Recorded Concern Status LastModified by Organization Details LastModified Time None Recorded Payers Encounter Date Sequence Insurance Name Policy Number Policy Wu Covered Member ID Wu Member ID Guarantor Name 07/21/2024 1 [facility]: [place]UE (MEDICARE REPLACEMENT PPO) [id number] Vincent Kevin [id number] Vincent Kevin Notes Date Note Type Note Provider Name and Address Organization Details Recorded Time 07/22/19 25 text/htm l Care Management - [...] nightbm relieves some of the discomfort Miky Ragland, DO [address] [facility], [place], [address], [facility] 07/21/2024 14:04:07
--- OUTSIDE RECORDS SUMMARY | 2024-07-21 14:33 | XMS_ITS | Encounter Summary ---
Author Organization [facility], Address [address] [place] [address] Phone Care Team Providers Care Java Mobile Developer Name Role Phone Hayley Miky MARRERO Primary Care Provider [phone] Encounter Details Date Type Department Care Team ([facility] st Contact Info) Description 06/30/2020 Orders Only [facility] - [address] [facility] [address] [place] [phone] Irasema Fagan MD Chronic kidney disease, stage [...] (moderate) documented in this encounter Care Teams Java Mobile Developer Relationship Specialty Start Date End Date Miky Hardy DO 6 [facility] [place] [phone] PCP - General 01/05/19 documented as of this encounter
--- OUTSIDE RECORDS SUMMARY | 2024-07-21 14:33 | XMS_ITS | Encounter Summary ---
Author Organization [facility], Address [address] [place] [address] Phone Care Team Providers Care Promotions Director Name Role Phone Miky Hardy DO Primary Care Provider [phone] Reason for Visit * Reason Comments Med Refill Encounter Details Date Type Department Care Team (Late st Contact Info) Description 08/02/2020 Refill [facility] [address] [facility] [address] [place] [phone] Irasema Fagan MD Social History Tobacco Use [...] on filedocumented in this encounter Care Teams Promotions Director Relationship Specialty Start Date End Date Miky Hardy DO [address] [facility] [id number] PCP - General 01/05/19 documented as of this encounter
--- OUTSIDE RECORDS SUMMARY | 2024-07-21 14:33 | XMS_ITS | Encounter Summary ---
Author Organization [facility], Address [address] [place] [address] Phone Care Team Providers Care Audio/Video Engineer Name Role Phone Hayley Miky MARRERO Primary Care Provider [phone] Encounter Details Date Type Department Care Team ([facility] st Contact Info) Description 12/31/2019 Orders Only [facility] [address] [facility] [address] [place] [phone] Irasema Fagan MD Chronic kidney disease, stage [...] (moderate) documented in this encounter Care Teams Audio/Video Engineer Relationship Specialty Start Date End Date Miky Hardy DO 6 [facility] [place] [phone] PCP - General 01/05/19 documented as of this encounter
--- OUTSIDE RECORDS SUMMARY | 2024-07-21 14:33 | XMS_ITS | Encounter Summary ---
Author Organization [facility], Address [address] [place] [address] Phone Care Team Providers Care Sewing Machine Adjuster Name Role Phone Miky Hardy DO Primary Care Provider [phone] Encounter Details Date Type Department Care Team (Late st Contact Info) Description 06/28/2022 Documentation Only [facility], - [place] [address] [facility] [address] [place] [phone] Irasema Fagan MD Social History Tobacco Use [...] on filedocumented in this encounter Care Teams Sewing Machine Adjuster Relationship Specialty Start Date End Date Miky Hardy DO [address] [facility] [phone] PCP - General 01/05/19 documented as of this encounter
--- OUTSIDE RECORDS SUMMARY | 2024-07-21 14:33 | XMS_ITS | Clinical Summary ---
Author Organization [facility], Address [address] [facility] [address] [place] [address] Phone Care Team Providers Care Stripper Preliminary Name Role Phone Miky Hardy DO Primary Care Provider [phone] Allergies No known active allergies Medications Multiple [...] patient's age to complete this topic Insurance [facility] Care Teams Stripper Preliminary Relationship Specialty Start Date End Date Miky Hardy DO [address] [place] [phone] PCP - General 01/05/19
[2024-07-21 18:07] LABS: MANUAL DIFF FLAG NO
[2024-07-21 18:18] LABS: Basophils Absolute Auto 0.1 X10*3/uL (0.0-0.2); Basophils Percent Auto 0.7 % (0-2); Eosinophils Absolute Auto 0.1 X10*3/uL (0.0-0.4); Eosinophils Percent Auto 0.8 % (0-4); Hematocrit 39.6 % (42.0-52.0); Imm Gran Abs Auto 0.07 X10*3/uL (0.00-0.03); Imm Gran Pct Auto 0.8 % (0.0-0.4); Lymphocytes Absolute Auto 1.4 X10*3/uL (1.2-4.9); Lymphocytes Percent Auto 14.9 % (20-40); Mean Corpuscular HGB Conc 32.8 g/dl (31.0-36.0); Mean Corpuscular Hemoglobin 28.1 pg (27.0-33.0); Mean Corpuscular Volume 85.7 fL (80.0-98.0); Mean Platelet Volume 10.5 fL (9.4-12.4); Monocytes Absolute Auto 0.5 X10*3/uL (0.1-1.2); Monocytes Percent Auto 5.6 % (2-11); Neutrophils Absolute Auto 7.1 x10*3/uL (2.0-8.3); Neutrophils Percent Auto 77.2 % (45-73); Platelet Count 233 X10*3/uL (160-400); Red Blood Count 4.62 X10*6/uL (4.60-5.80); Red Cell Distribution Width 13.1 % (11.0-16.0); White Blood Count 9.1 X10*3/uL (4.8-10.8)
[2024-07-21 18:32] LABS: Estimated Average Glucose 183 mg/dL; Hemoglobin A1C 217.7176 umol/L; Total Hemoglobin (HGBA1C) 3396.0957 umol/L
[2024-07-21 18:33] LABS: Alanine Aminotransferase 12 U/L (0-40); Albumin Level 4.7 g/dL (3.5-5.0); Alkaline Phosphatase 22 U/L (39-117); Anion Gap 16 (12-20); Aspartate Amino Transferase 17 U/L (5-37); Bilirubin Total 0.5 mg/dL (0.0-1.0); Blood Urea Nitrogen 15 mg/dL (9-16); Calcium 9.8 mg/dL (8.4-10.2); Carbon Dioxide 26 mmol/L (22-29); Chloride 101 mmol/L (96-108); Estimated Glomerular Filt Rate > 60; Glucose Random 169 mg/dL (60-115); Potassium 4.2 mmol/L (3.3-5.1); Sodium 139 mmol/L (135-145); Total Protein 7.1 g/dL (6.5-8.0)
== END 2024-07-21 14:06 | disposition home or self-care (01) ==
LOC: HO.MANLDS 14:05
PROVIDERS: Visit Provider Internal Medicine
DX: E78.00 Pure hypercholesterolemia, unspecified (principal); E11.22 Type 2 diabetes mellitus with diabetic chronic kidney disease
CPT/HCPCS: 36415; 80053; 83036; 85025